=== PATIENT | male | born 1950 | race Caucasian/White ===

== ENCOUNTER 2016-12-08 05:31 | Day surgery (SDC) | payer MEDICARE, OTHER ==
[~2016-12-08] VITALS: Ht 190.5 cm; Wt 141.8 kg
[~2016-12-08 05:31] MED LIST: ASPIRIN325 MG PO; CARDURA2 MG PO; COZAAR100 MG PO; GLUCOSAMINE & C1 CAP; GLUCOSAMINE MSM; HYDROCODON-ACE1 EAC7 PO; ISOSORBIDE MONO30 M1 PO; LASIX40 MG PO; METFORMIN HCL500 M1 PO; MULTIPLE VITAMI1 TA1 PO; NEURONTIN 300300 MG PO; NITROSTAT0.4 MG SL; NORVASC10 MG PO; POTASSIUM CHLO10 ME1 PO; PREDNISONE20 MG PO; VITAMIN B-121000 MCG PO; ZEBETA5 MG PO; ZOCOR20 MG PO
[2016-12-08 06:25] LABS: BASOPHILS 0.3 % (0-2); EOSINOPHILS 2.9 % (0-7); HEMATOCRIT 37.3 % (42.0-54.0); HEMOGLOBIN 12.8 g/dL (13.5-17.5); IMMATURE GRANULOCYTES 0.3 % (0-5); MCH 31.1 pg (26.0-34.0); MCHC 34.3 g/dL (31.0-37.0); MCV 90.8 fL (80.0-100.0); MEAN PLATELET VOLUME 9.8 fL (7.4-10.4); MONOCYTES 7.8 % (2-11); NEUTROPHILS 61.7 % (40-80); PLATELET COUNT 136 10x3/uL (130-400); RBC 4.11 10x6/uL (4.20-6.10); RDW 12.5 % (11.5-14.5); WBC 7.2 10x3/uL (4.8-10.8)
[2016-12-08 06:46] LABS: CALC OSMOLALITY 282 mosm/kg (275-300); CALCIUM 9.2 mg/dL (8.5-10.1); CARBON DIOXIDE 28.4 mmol/L (21.0-32.0); CHLORIDE - SERUM 105 mmol/L (98-107); CREATININE - SERUM 0.8 mg/dL (0.6-1.3); GLUCOSE 152 mg/dL (74-106); POTASSIUM - SERUM 3.9 mmol/L (3.5-5.1); SODIUM 141 mmol/L (136-145); UREA NITROGEN 9 mg/dL (7-18); eGFR NON AFRICAN AMERICAN > 90 mL/min (90-120)
[2016-12-08] MEDS ORDERED: BETAPACE160 MG PO (07:01)
[2016-12-08 07:13] VITALS: BP 151/70; Ht 190.5 cm; Wt 141.8 kg
--- NOTE | 2016-12-08 09:34 | NUR ---
IV DC WITH CATBHER TIP INTACT
--- NOTE | 2016-12-10 17:16 | OP ---
PATIENT NAME: KRISTIE CARRERA MEDICAL RECORD: [id number] :48 LOCATION:D.OPS ADMISSION DATE: SURGEON: NATHANAEL SULLIVAN MD DATE OF OPERATION: 12/08/2016 REFERRING PHYSICIAN: Dr. Vazquez. SURGEON: Nathanael Sullivan MD ANESTHESIA: TIVA per INFORMATION TECHNOLOGY COORDINATOR. OPERATION PERFORMED: Screening colonoscopy to the cecum. INDICATIONS: Prior screening colonoscopy 10 or more years in the past. The patient presently asymptomatic and is classified as a low risk individual. DESCRIPTION OF PROCEDURE: Under propofol sedation and monitored per INFORMATION TECHNOLOGY COORDINATOR, the patient was turned in the decubitus position and digital rectal exam was performed. I could not reach high in the rectum, but I noted that the prostate seemed to be enlarged, the lower half that I could palpate. There were no masses, no evidence of perianal sepsis or tumor, hemorrhoidal thrombosis or inflammation. The Olympus colonoscope was then inserted and advanced to the cecum with mild difficulty due to some spasm and persistent green liquid stool, which had not been completely cleared during his prep. I was able to irrigate and suction most of this away although it did compromise examination slightly. The scope was slowly withdrawn with a pullout time of 15 minutes and no pathology was seen. The scope was retroflexed in the rectum. Again, no pathology there. The scope was removed and the patient after recovering in the GI lab will be returned to his bed on the outpatient nursing, will resume his usual home medications and diabetic diet and then will be discharged later today. He does not need to return to see me in my office unless there is a problem or concern and if there is, he certainly should call and he is given my personal cell phone number to use if necessary after regular office hours. TRANSINT:[id number] Voice Confirmation ID: [id number] DOCUMENT ID: [id number] NATHANAEL SULLIVAN MD at 1716 CC: TANYA VAZQUEZ MD [id number] DICTATION DATE: 12/08/16 0845 RN PRIOR AUTHORIZATION: 12/08/16 1326 [facility] 12/08/16 [place] [id number]
== END 2016-12-08 09:40 | disposition home or self-care (01) ==
LOC: D.OPS 05:31
PROVIDERS: Anesthesiology
DX: Z12.11 Encounter for screening for malignant neoplasm of colon (principal)

== ENCOUNTER → 2017-10-13 10:29 | Outpatient (CLI) | payer MEDICARE, OTHER ==
--- NOTE | ~2017-10-13 | HEMODYNAMI ---
PATIENT:KRISTIE CARRERA MEDICAL RECORD: [id number] : 48 LOCATION:[facility] ADMISSION DATE: 10/13/17 Generatedon:10/13/201713:01 Patient name: KRISTIE CARRERA Patient #: [id number] SSN: : 1950 Date of study: 10/13/2017 Page: Of Hemodynamic Procedure Report Patient Data Patient Demographics Procedure consent was obtained First Name: KRISTIE Gender: Male Last Name: DEANDRE : 1950 [facility] Initial: CULLEN Age: 67 year(s) Patient #: [id number] Race: Additional ID: [id number] Contact details Address: [address] [place] [address] State: [place] City: [place] Zip code: [address] Past Medical History History of disease Date Diagnosis Comments CAD Allergies Allergen Reaction Date Comments Reported Other allergy 01/23/2015 SHELLFISH Other allergy 10/13/2017 SHELLFISH DERIVED Admission Admission Data Admission Date: 10/13/2017 Admission Time: 10:29 Height (in.): 6.3 BSA: 0.45 (m2) Height (cm.): 16 BMI: 5881.06 (kg/m2) Weight (lbs.): 332 Weight (kg.): 150.59 Lab Results Lab Result Date: 10/13/2017 Lab Result Time: 0:00 Biochemistry Name Units Result Min Max BUN mg/dl 16 --(---*)-- 7 18 Creatinine mg/dl 1 --(--*-)-- 0.6 1.3 CBC Name Units Result Min Max Hemoglobin g/dl 13.1 -*(----)-- 13.5 17.5 Procedure Procedure Types Cath Procedure Diagnostic Procedure LHC LHC w/Coronaries w/Grafts Miscellaneous Procedures Moderate Sedation up to 15 minutes Procedure Description Procedure Date Procedure Date: 10/13/2017 Procedure Start Time: 12:39 Procedure End Time: 13:00 Procedure Staff Name Function Humlbe Mac MD Performing Physician Ashely Villavicencio RT Monitor Horacio Ignacio RT Scrub Jeffrey Calle RN Nurse Procedure Data Cath Procedure Fluoroscopy Diagnostic fluoroscopy Total fluoroscopy Time: 3.2 time: 3.2 min min Diagnostic fluoroscopy Total fluoroscopy dose: 785 dose: 785 mGy mGy Contrast Material Contrast Material Type Amount (ml) Isovue 300 80 Entry Location Entry Primary Successful Side Size Upsize Upsize Entry Closure Succes sful Closure Location (Fr) 1 (Fr) 2 (Fr) Remarks Device Remarks Femoral Right 5 Fr Exoseal artery Estimated blood loss: 5 ml Diagnostic catheters Device Type Used For End Catheter Placement MULTIPACK JL 4.0 5Fr Procedure catheter DIAGNOSTIC AR MOD 5Fr Procedure Catheter ([id number]) DIAGNOSTIC IMT 5Fr Procedure Catheter ([id number]) MULTIPACK Pigtail 5 Fr Procedure catheter Procedure Complications No complications Procedure Medications Medication Administration Route Dosage 0.9% NaCl I.V. 100 ml/hr Oxygen NC 2 l/min Heparin Flush Bag added to field 2 bags (1000units/500ml NS) Lidocaine 2% added to field 20 Versed I.V. 2 mg Fentanyl I.V. 100 mcg Versed I.V. 1 mg Hemodynamics Rest BSA: 0.45 (m2) HGB: 13.1 (g/dl) O2 Consumption: Estimated: 53.11 (ml/min) O2 Con sumption indexed: Estimated:118.02 (ml/min/m) Heart Rate: 75 (bpm) Pressure Samples Time Site Value (mmHg) Purpose Heart Use Rate(bpm) 12:52 LV 175/8,23 Snapshot 83 12:52 AO (108) Pullback 80 12:52 LV 167/2,18 Pullback 80 Gradients Valve Time Site 1 Site Mean SEP/DFP Peak To Heart Use 2 (mmHg) (sec/min) Peak Rate (mmHg) (bpm) Aortic 12:52 LV AO 11 21 80 167/2,18 (108) Calculations Valve P-P Mean Valve Index Valve Source Name Gradient Area Flow (cm2) Aortic 11 11 Snapshots Pre Cath Intra NCS Post Cath Vital Signs Time Heart Resp SPO2 etCO2 NIBP (mmHg) Rhythm Pain Sedation Rate (ipm) (%) (mmHg) Status Level (bpm) 12:31:54 70 17 95 33.6 162/79(128) A-Fib 0 (11) 10(A) , No pain 12:36:43 74 14 95 27.6 158/81(106) A-Fib 0 (11) 10(A) , No pain 12:41:33 73 18 96 25.3 150/93(119) A-Fib 0 (11) 10(A) , No pain 12:46:24 75 18 95 31.3 149/81(114) A-Fib 0 (11) 9(A) , No pain 12:51:15 82 18 96 32.1 161/86(108) A-Fib 0 (11) 9(A) , No pain 12:56:08 81 22 96 33.5 161/91(116) A-Fib 0 (11) 10(A) , No pain 13:00:59 83 20 96 32 158/95(128) A-Fib 0 (11) 10(A) , No pain Medications Time Medication Route Dose Verified Delivered Reason Notes Effe ctiveness by by 12:30:22 0.9% NaCl I.V. 100 Jeffrey Jeffrey Per ml/hr Alva Calle physician RN RN 12:30:33 Oxygen NC 2 Jeffrey Jeffrey Per l/min Alva Calle physician RN RN 12:30:46 Heparin Flush added 2 Jeffrey Jeffrey used for Bag to bags Lorigan Lorigan procedure (1000units/500ml field RN RN NS) 12:30:56 Lidocaine 2% added 20ml Jeffrey Jeffrey for local to vial Lorigan Lorigan anesthetic field RN RN 12:32:45 Versed I.V. 2 mg Jeffrey Jeffrey for Lorigan Lorigan sedation RN RN 12:32:53 Fentanyl I.V. 100 Jeffrey Jeffrey for mcg Lorigan Lorigan sedation RN RN 12:38:24 Versed I.V. 1 mg Jeffrey Jeffrey for Lorigan Lorigan sedation RN assistant operator Log Time Note 11:58:41 Time tracking: Regular hours 11:58:45 Plan of Care:Hemodynamics will remain stable., Cardiac rhythm will remain stable., Comfort level will be maintained., Respiratory function will remain adequate., Patient/ family verbilizes understanding of procedure., Procedure tolerated without complication., Recovers from procedure without complications.. 11:58:47 Signed procedure consent form obtained from patient. 12:02:25 Patient Height : 6.3 inches 12:02:31 Patient Weight : 332 lbs 12:03:51 Patient allergic to Other allergySHELLFISH DERIVED 12:05:51 Lab Result : BUN 16 mg/dl 12:05:51 Lab Result : Creatinine 1 mg/dl 12:05:51 Lab Result : Hemoglobin 13.1 g/dl 12:08:38 Jeffrey Calle RN sent for patient. Start room use. 12:17:40 Patient received from Pre/Post Procedure Room to CCL 1 Alert and oriented. Tansferred to table in Supine position. 12:17:45 Warm blankets applied, and marcus hugger turned on for patient comfort. 12:17:46 Correct patient and procedure confirmed by team. 12:17:46 ECG and BP/O2 sat monitors applied to patient. 12:17:57 H&P Date Dictated: 10/11/2017 Within 30 days and on chart., H&P Addendum completed by physician on day of procedure. (MUST COMPLETE FOR ALL OUTPATIENTS). 12:17:58 Pre-procedure instructions explained to patient. 12:17:58 Pre-op teaching completed and patient verbalized understanding. 12:18:00 Family in waiting room. 12:18:01 Patient NPO since Midnight. 12:18:07 Diagnostic Cath status Elective 12:30:22 0.9% NaCl 100 ml/hr I.V. was administered by Jeffrey Calle RN; Per physician; 12:30:33 Oxygen 2 l/min NC was administered by Jeffrey Calle RN; Per physician; 12:30:46 Heparin Flush Bag (1000units/500ml NS) 2 bags added to field was administered by Jeffrey Calle RN; used for procedure; 12:30:47 Vital chart was started 12:30:56 Baseline sample Acquired. 12:30:56 Lidocaine 2% 20ml vial added to field was administered by Jeffrey Calle RN; for local anesthetic; 12:31:01 Rhythm: sinus rhythm 12:31:02 Full Disclosure recording started 12:31:06 Is the patient allergic to Iodine/contrast media? Yes. 12:31:07 Was the patient premedicated? Yes 12:31:08 Is patient on blood thinner?Yes 12:31:22 CAROLINE HELD WEDNESDAY 12:31:35 Patient diabetic? Yes. 12:31:36 If diabetic: On Metformin? Yes 12:31:39 If on Metformin: Last Dose? 10/11/2017 12:31:42 Previous problem with sedation/anesthesia? No ? 12:31:43 Snore? Yes 12:31:43 Sleep apnea? Yes 12:31:45 Deviated septum? No 12:31:46 Opens mouth fully? Yes 12:31:46 Sticks out tongue? Yes 12:31:49 Airway obstruction? No ? 12:31:51 Dentures? No ? 12:31:54 Pre procedure: right dorsailis pedis pulse 2+ Normal; easily identifiable; not easily obliterated 12:32:01 IV patent on arrival in left hand with 0.9% NaCl at [facility]. 12:32:03 Patient pain scale 0/10 ?. 12:32:06 Lab results completed and on chart. 12:32:09 Right groin area was prepped with chlora-prep and draped in sterile fashion 12:32:11 Alarms reviewed by R. N. 12:32:11 Sharps counted by scrub and verified by R.N. 12:32:12 --------ALL STOP TIME OUT------ 12:32:13 Final Timeout: patient, procedure, and site verified with staff and physician. All members of the team are in agreement. 12:32:14 Right groin site verified by team. 12:32:17 Physical assessment completed. ASA score P 2 - A patient with mild systemic disease as per Humble Mac MD. 12:32:21 Sedation plan: IV Moderate Sedation Medication:Versed, Fentanyl 12:32:34 Use device set Femoral Dx 12:32:36 ACIST Syringe (19238) opened to sterile field. 12:32:36 Bag Decanter (2001S) opened to sterile field. 12:32:38 ACIST Hand Control (88072) opened to sterile field. 12:32:38 ACIST Manifold (71790) opened to sterile field. 12:32:39 Tegaderm 4 x 4 (1626W) opened to sterile field. 12:32:40 Medline Cath Pack ([id number]) opened to sterile field. 12:32:41 SHEATH 5FR [place] (OZY777) opened to sterile field. 12:32:41 DIAGNOSTIC WIRE .035 260cm J wire (830996) opened to sterile field. 12:32:43 DIAGNOSTIC Multipack 5Fr catheter set ([id number]) opened to sterile field. 12:32:43 PERCUTANEOUS ENTRY 19GA needle opened to sterile field. 12:32:45 Versed 2 mg I.V. was administered by Jeffrey Calle RN; for sedation; 12:32:53 Fentanyl 100 mcg I.V. was administered by Jeffrey Calle RN; for sedation; 12:36:12 Zero performed for pressure channel P1 12:36:24 Zero performed for pressure channel P1 12:36:46 Zero performed for pressure channel P1 12:36:57 Zero performed for pressure channel P1 12:37:07 Zero performed for pressure channel P1 12:38:24 Versed 1 mg I.V. was administered by Jeffrey Calle RN; for sedation; 12:39:07 Zero performed for pressure channel P1 12:39:34 Zero performed for pressure channel P1 12:39:38 Procedure started. 12:39:42 Local anesthetic to right femoral artery with Lidocaine 2% by Humble Mac MD.INITIAL ACCESS ONLY 12:39:52 Zero performed for pressure channel P1 12:41:32 A 5 Fr sheath was inserted into the Right Femoral artery 12:42:18 A MULTIPACK JL 4.0 5Fr catheter was advanced over the wire and used for Procedure. 12:43:31 LCA angiography performed. 12:44:00 Catheter exchanged over wire. 12:45:07 A DIAGNOSTIC AR MOD 5Fr Catheter ([id number]) was advanced over the wire and used for Procedure. 12:45:58 SVG to RCA angiography performed. 12:46:43 Catheter exchanged over wire. 12:47:27 A DIAGNOSTIC IMT 5Fr Catheter ([id number]) was advanced over the wire and used for Procedure. 12:49:31 WILCOX to LAD angiography performed. 12:49:43 WILCOX to Circ angiography performed. 12:50:04 Catheter exchanged over wire. 12:51:17 A MULTIPACK Pigtail 5 Fr catheter was advanced over the wire and used for Procedure. 12:51:48 LV gram done using CROWLEY 12::52 Injector settings: Ml/sec: 10, Volume: 20, 12:51:53 LV hemodynamics recorded. 12:52:38 EF : 60 % 12:53:05 Catheter exchanged over wire. 12:53:06 Catheter removed. 12:53:19 EXOSEAL 5Fr (EX500) opened to sterile field. 12:53:28 Sheath removed intact; hemostasis achieved with Exoseal to the Right Femoral artery. 12:54:12 Procedure ended.(Physican Out) 12:54:48 Fluoroscopy time 03.20 minutes. 12:54:51 Fluoroscopy dose: 785 mGy 12:54:51 Flurop Dose total: 785 12:54:56 Contrast amount:Isovue 300 80ml. 12:54:57 Sharps counted by scrub and verified by R.N. 12:55:25 Post-op/insertion site Right Femoral artery dressed using a 4 x 4 and Tegaderm. 12:55:30 Post right femoral artery:stable, soft, clean and dry 12:55:35 Post procedure: right dorsailis pedis pulse 2+ Normal; easily identifiable; not easily obliterated. 12:55:38 Post-procedure physical assessment completed. ASA score P 2 - A patient with mild systemic disease as per Humble Mac MD. 12:55:41 Post procedure rhythm: unchanged. 12:55:43 Estimated blood loss: 5 ml 12:55:44 Post procedure instruction explained to patient.Patient verbalizes understanding. 12:55:45 Patient needs reinforcement of post procedure teaching. 12:55:51 Procedure type changed to Cath procedure, Diagnostic procedure, LHC, LHC w/Coronaries w/Grafts, Miscellaneous Procedures, Moderate Sedation up to 15 minutes 13:00:20 Procedure and supply charges have been captured, reviewed, submitted and are correct. 13:00:28 Procedure Complication : No complications 13:00:30 Vital chart was stopped 13:00:31 See physician's report for complete and final results. 13:00:33 Report given to Pre/Post Procedure Room. 13:00:35 Patient transfered to Pre/Post Procedure Room with Bed. 13:00:38 Procedure ended. 13:00:38 Full Disclosure recording stopped 13:00:54 End room use (Document Last) Device Usage Item Name Manufacture Quantity Catalog Number Hospital Part Current Mini mal Lot# / Charge Number Stock Stock Serial# Code ACIST Acist 1 00177 729495 107490 803619 20 Syringe Medical (48788) [employer] Bag Decanter Microtek 1 995255 27718 797709 5 () Medical Inc. ACIST Hand Acist 1 12115 148675 577516 633571 5 Control Medical (76882) Systems Inc ACIST Acist 1 40817 146439 842638 144337 5 Manifold Medical (91425) Systems Inc Tegaderm 4 x 3M 1 1626W 202830 910380 213290 5 4 (1626W) Medline Cath Cardinal 1 [id number] 466192 27645 122715 5 Pack Health ([id number]) SHEATH 5FR Terumo 1 KJV296 458940 705888 694098 40 [place] (HZQ089) DIAGNOSTIC [place] 1 762947 204547 184822 878144 30 WIRE .035 260cm J wire (851222) DIAGNOSTIC Cardinal 1 JM2971 982747 55795 862797 30 Multipack Health 5Fr catheter set (IO4320) PERCUTANEOUS Cook Medical 1 H45997 819472 089999 5 ENTRY 19GA needle MULTIPACK JL Cardinal 1 648613 5 4.0 5Fr Health catheter DIAGNOSTIC Cardinal 1 [id number] 332968 893998 562071 15 AR MOD 5Fr Health Catheter (476001O) DIAGNOSTIC [place] 1 [id number] 845277 138601 61362 5 IMT 5Fr Scientific Catheter ([id number]) MULTIPACK Cardinal 1 406590 5 Pigtail 5 Fr Health catheter EXOSEAL 5Fr Cardinal 1 EX500 903785 912055 745417 10 (EX500) Health Signature Audit [place] Stage Time Signature Unsigned Intra-Procedure 10/13/2017 Ashely Villavicencio 1:01:12 PM RT(R) Signatures Monitor : Ashely Villavicencio Signature : RT Date : Time : [facility] [address] [facility] [place] [address]
[~2017-10-13 10:29] MED LIST changes: +BETAPACE160 MG PO; +ELIQUIS5 MG PO; +RYTHMOL PO
[2017-10-13 11:22] VITALS: BP 171/66; BMI 41.9
[2017-10-13 11:25] LABS: HEMATOCRIT 37.9 % (42.0-54.0); HEMOGLOBIN 13.1 g/dL (13.5-17.5); MCH 30.3 pg (26.0-34.0); MCHC 34.6 g/dL (31.0-37.0); MCV 87.5 fL (80.0-100.0); MEAN PLATELET VOLUME 8.8 fL (7.4-10.4); PLATELET COUNT 149 10x3/uL (130-400); RBC 4.33 10x6/uL (4.20-6.10); RDW 12.2 % (11.5-14.5); WBC 8.8 10x3/uL (4.8-10.8)
[2017-10-13 11:39] LABS: CALC OSMOLALITY 285 mosm/kg (275-300); CALCIUM 9.5 mg/dL (8.5-10.1); CARBON DIOXIDE 21.6 mmol/L (21.0-32.0); CHLORIDE - SERUM 102 mmol/L (98-107); POTASSIUM - SERUM 4.2 mmol/L (3.5-5.1); SODIUM 138 mmol/L (136-145); UREA NITROGEN 16 mg/dL (7-18); eGFR NON AFRICAN AMERICAN 79 mL/min (90-120)
[2017-10-13 11:40] LABS: GLUCOSE 262 mg/dL (74-106)
[2017-10-13 12:06] LABS: INR 1.01 (0.85-1.17); PROTIME 12.9 SECONDS (11.6-15.0)
== END | disposition home or self-care (01) ==
LOC: D.CATH 10:29
PROVIDERS: Internal Medicine Cardiovascular Disease
DX: I25.119 Atherosclerotic heart disease of native coronary artery with unspecified angina pectoris (principal); Z95.1 Presence of aortocoronary bypass graft; Z01.812 Encounter for preprocedural laboratory examination

== ENCOUNTER 2017-10-16 09:10 | Observation (INO) | payer MEDICARE, OTHER ==
[~2017-10-16] VITALS: Ht 190.5 cm; Wt 152.3 kg
--- NOTE | ~2017-10-16 | CN ---
PATIENT NAME:KRISTIE CARRERA MEDICAL RECORD: [id number] : 48 LOCATION:D.MS [address] ADMIT DATE: 10/16/17 ACCOUNT: [id number] CONSULTING PHYSICIAN: MARTHA HUTCHISON MD REFERRING PHYSICIAN: MATTHEW GONZALEZ MD DATE OF CONSULTATION: 10/17/2017 HISTORY OF PRESENT ILLNESS: A 67-year-old gentleman admitted with chest pain, palpitations, and shortness of breath. He recently underwent angiography, which showed normal coronary anatomy, normal LV function. His arrhythmogenic symptomatology sounds more like PVCs and PACs. He has had atrial fibrillation in the past. He is on Eliquis for seizure prophylaxis, feels that his dyspnea may be secondary related to his sotalol as well, although I see a large component of deconditioning in this gentleman. We are asked to see him concerning his cardiovascular status. PAST MEDICAL HISTORY: Includes; 1. History of atrial fibrillation as described above. 2. Hyperlipidemia. 3. Hypertension. 4. Diabetes mellitus. 5. Obstructive sleep apnea. ALLERGIES: SHELLFISH. MEDICATIONS: Typically include Glucophage 500 b.i.d., potassium supplementation, Lasix 40 b.i.d., Traphill 5/325 two at bedtime, Neurontin 800 t.i.d., aspirin 325 every day, losartan 100 every day, amlodipine 10 every day, sotalol 120 b.i.d., simvastatin 20 every day, Cardura 3 every day, Eliquis 5 b.i.d. SOCIAL HISTORY: , nonsmoker, and nondrinker. No set exercise program. REVIEW OF SYSTEMS: The patient reports easy bruising but reports no swollen glands. The patient reports no fever, no night sweats, no significant weight gain, no significant weight loss. No significant exercise tolerance. The patient reports no dry eyes, no irritation, no vision change. Patient reports no difficulty hearing and no ear pain. Patient reports no frequent nose bleeds or nose and sinus problems. Patient reports on arm pain on exertion. No shortness of breath while lying down. No history of heart murmur. Patient reports no cough, no wheezing or coughing up blood. Patient reports no abdominal pain, no vomiting. Normal appetite. No diarrhea and not vomiting blood. No nausea and no constipation. Patient reports no incontinence. No difficulty urinating. No hematuria. No increased frequency. Patient reports no muscle aches. No weakness, no arthralgias, no back pain. No swelling of the extremities. Patient reports no abnormal mole, no jaundice, no rashes. Reports no loss of consciousness. No weakness and no numbness. No seizures, dizziness, or headaches. The patient reports no depression, no sleep disturbance, feeling safe in a relationship and no alcohol abuse. Patient reports on fatigue. Reports no runny nose or sinus pressure. No itching, no hives, and no frequent sneezing. PHYSICAL EXAMINATION: GENERAL: Pleasant gentleman, in no acute distress. VITAL SIGNS: Blood pressure 188/85, pulse 60 and regular. CONSULT REPORT [id number] KRISTIE CARRERA HEENT: Normocephalic, atraumatic. NECK: No bruits are noted. HEART: Regular, II/ systolic ejection murmur. LUNGS: Good air excursion. ABDOMEN: Soft, nontender. EXTREMITIES: Pulses 2+. There is no edema. IMPRESSION: Dyspnea and chest pain, probably not cardiac related. No sustained arrhythmogenic symptomatology. Given CHADS score, we would leave on Eliquis at this point. Change sotalol to propafenone 225 t.i.d. No contraindication at discharge from my standpoint. TRANSINT:[id number] Voice Confirmation ID: [id number] DOCUMENT ID: [id number] MARTHA HUTCHISON MD at 0824 CC: [id number] DICTATION DATE: 10/17/17 1208 FRAN[place]ISE CONSULTANT: 10/17/17 1608 DIS IN 10/17/17 [place] [id number] [place] [id number]
[~2017-10-16 09:10] MED LIST changes: -ELIQUIS5 MG PO; -RYTHMOL PO
[2017-10-16 10:07] LABS: BASOPHILS 0.3 % (0-2); EOSINOPHILS 2.4 % (0-7); HEMATOCRIT 36.6 % (42.0-54.0); HEMOGLOBIN 12.6 g/dL (13.5-17.5); IMMATURE GRANULOCYTES 0.7 % (0-5); LYMPHOCYTES 27.6 % (15-50); MCHC 34.4 g/dL (31.0-37.0); MCV 89.9 fL (80.0-100.0); MEAN PLATELET VOLUME 9.4 fL (7.4-10.4); PLATELET COUNT 140 10x3/uL (130-400); RBC 4.07 10x6/uL (4.20-6.10); RDW 12.4 % (11.5-14.5); WBC 7.1 10x3/uL (4.8-10.8)
[2017-10-16 10:17] LABS: APTT 28.7 SECONDS (22.8-39.4); INR 1.1 (0.85-1.17); PROTIME 13.8 SECONDS (11.6-15.0)
[2017-10-16 10:18] LABS: D-DIMER-QUANTITATIVE 0.43 ug/mLFEU (0.20-0.54)
[2017-10-16 10:21] LABS: ALBUMIN 3.7 g/dL (3.4-5.0); ALKALINE PHOSPHATASE 51 U/L (46-116); ALT (SGPT) 28 U/L (10-68); BILIRUBIN - TOTAL 0.31 mg/dL (0.2-1.3); CALC OSMOLALITY 286 mosm/kg (275-300); CALCIUM 9.1 mg/dL (8.5-10.1); CARBON DIOXIDE 26.4 mmol/L (21.0-32.0); CHLORIDE - SERUM 102 mmol/L (98-107); CREATININE - SERUM 1.1 mg/dL (0.6-1.3); POTASSIUM - SERUM 3.6 mmol/L (3.5-5.1); PROTEIN - SERUM 7.2 g/dL (6.4-8.2); SODIUM 139 mmol/L (136-145); UREA NITROGEN 23 mg/dL (7-18); eGFR NON AFRICAN AMERICAN 71 mL/min (90-120)
[2017-10-16 10:24] LABS: GLUCOSE 186 mg/dL (74-106)
[2017-10-16 10:33] LABS: CHOL - HDL RATIO 3.4 ratio (2.3-4.9); CHOLESTEROL, TOTAL 134 mg/dL (0-200); CKMB 1.4 U/L (0.0-3.6); CREATINE KINASE 68 UL (21-232); HDL CHOLESTEROL 39 mg/dL (32-96); LDL CHOLESTEROL 60 mg/dL (0-100); LDL-HDL RATIO 1.5 ratio (1.5-3.5); MAGNESIUM - SERUM 1.7 mg/dL (1.8-2.4); PRO BNP 310 pg/mL (0-125); TRIGLYCERIDE 177 mg/dL (30-200)
[2017-10-16 10:35] LABS: TROPONIN-I < 0.017 ng/mL (0.000-0.060)
[2017-10-16 12:30] LABS: CREATINE KINASE 67 UL (21-232)
[2017-10-16 12:35] LABS: TROPONIN-I < 0.017 ng/mL (0.000-0.060)
[2017-10-16 15:11] VITALS: BP 147/68
[2017-10-16 15:59] VITALS: BP 154/67; BMI 41.9
[2017-10-16 16:04] VITALS: Ht 190.5 cm; Wt 152.3 kg
[2017-10-16 18:19] LABS: ERYTHROCYTE SEDIMENTATION RATE 15 mm/hr (0-20)
[2017-10-16 18:55] LABS: CREATINE KINASE 61 UL (21-232); TROPONIN-I < 0.017 ng/mL (0.000-0.060)
[2017-10-16 20:00] VITALS: BP 158/73
[2017-10-17] VITALS: BP 150/66
[2017-10-17 00:53] LABS: CREATINE KINASE 45 UL (21-232); TROPONIN-I < 0.017 ng/mL (0.000-0.060)
[2017-10-17 04:00] VITALS: BP 165/69
[2017-10-17 04:00] LABS: BASOPHILS 0.4 % (0-2); EOSINOPHILS 2.1 % (0-7); HEMATOCRIT 34.8 % (42.0-54.0); HEMOGLOBIN 11.7 g/dL (13.5-17.5); IMMATURE GRANULOCYTES 0.4 % (0-5); LYMPHOCYTES 34.3 % (15-50); MCH 30.3 pg (26.0-34.0); MCHC 33.6 g/dL (31.0-37.0); MCV 90.2 fL (80.0-100.0); MEAN PLATELET VOLUME 9.6 fL (7.4-10.4); MONOCYTES 8.1 % (2-11); NEUTROPHILS 54.7 % (40-80); PLATELET COUNT 135 10x3/uL (130-400); RBC 3.86 10x6/uL (4.20-6.10); RDW 12.4 % (11.5-14.5); WBC 7.5 10x3/uL (4.8-10.8)
[2017-10-17 04:15] LABS: ALBUMIN 3.2 g/dL (3.4-5.0); ALKALINE PHOSPHATASE 44 U/L (46-116); ALT (SGPT) 25 U/L (10-68); BILIRUBIN - TOTAL 0.31 mg/dL (0.2-1.3); CALC OSMOLALITY 282 mosm/kg (275-300); CALCIUM 8.5 mg/dL (8.5-10.1); CARBON DIOXIDE 26.2 mmol/L (21.0-32.0); CHLORIDE - SERUM 103 mmol/L (98-107); GLUCOSE 157 mg/dL (74-106); POTASSIUM - SERUM 3.6 mmol/L (3.5-5.1); PROTEIN - SERUM 6.3 g/dL (6.4-8.2); SODIUM 139 mmol/L (136-145); UREA NITROGEN 19 mg/dL (7-18)
[2017-10-17 04:16] LABS: CREATININE - SERUM 0.8 mg/dL (0.6-1.3)
[2017-10-17 04:18] LABS: eGFR NON AFRICAN AMERICAN > 90 mL/min (90-120)
[2017-10-17 08:08] VITALS: BP 188/85
[2017-10-17 12:10] VITALS: BP 158/75
[2017-10-17] MEDS ORDERED: RYTHMOL PO (12:18)
[2017-10-17 16:39] VITALS: BP 149/65
== END 2017-10-17 16:00 | disposition home or self-care (01) ==
LOC: D.ER 09:10 → D.EDHOLD 11:51 → OBSVTIME 11:52 → D.MS 13:15
PROVIDERS: Family Medicine; Internal Medicine Nephrology
DX: R07.89 Other chest pain (principal); N17.9 Acute kidney failure, unspecified; E83.42 Hypomagnesemia; I10 Essential (primary) hypertension; E78.5 Hyperlipidemia, unspecified; I48.91 Unspecified atrial fibrillation; I25.10 Atherosclerotic heart disease of native coronary artery without angina pectoris; Z95.5 Presence of coronary angioplasty implant and graft; E11.42 Type 2 diabetes mellitus with diabetic polyneuropathy; R79.89 Other specified abnormal findings of blood chemistry

== ENCOUNTER 2017-11-17 10:53 | Outpatient (CLI) | payer MEDICARE, OTHER ==
[~2017-11-17] VITALS: Ht 185.4 cm; Wt 152.3 kg
--- NOTE | ~2017-11-17 | HEMODYNAMI ---
PATIENT:KRISTIE CARRERA MEDICAL RECORD: [id number] : 48 LOCATION:D.CAT ADMISSION DATE: 11/17/17 Generatedon:11/17/201713:33 Patient name: KRISTIE CARRERA Patient #: [id number] SSN: : 1950 Date of study: 11/17/2017 Page: Of Hemodynamic Procedure Report Patient Data Patient Demographics Procedure consent was obtained First Name: KRISTIE Gender: Male Last Name: DEANDRE : 1950 [facility] Initial: CULLEN Age: 67 year(s) Patient #: [id number] Race: Additional ID: [id number] Contact details Address: [address] [place] [address] State: [place] City: [place] Zip code: [address] Past Medical History History of disease Date Diagnosis Comments CAD Allergies Allergen Reaction Date Comments Reported Other allergy 01/23/2015 SHELLFISH Other allergy 10/13/2017 SHELLFISH DERIVED Shellfish 11/17/2017 Admission Admission Data Admission Date: 11/17/2017 Admission Time: 10:53 Procedure Procedure Types Cath Procedure Diagnostic Procedure Cardioversion External Procedure Description Procedure Date Procedure Date: 11/17/2017 Procedure Start Time: 13:20 Procedure End Time: 13:33 Procedure Staff Name Function Humble Mac MD Performing Physician Yuliya Elliott RT Monitor Bart Caro RN Nurse Kristine Bejarano CRNA Additional personnel Jeffrey Calle RN Nurse Procedure Data Procedure Complications No complications Procedure Medications Medication Administration Route Dosage Oxygen etCO2 Nasal cannula 6 l/min Refer to Anesthesia Notes for Sedation Medications Hemodynamics Rest Heart Rate: 69 (bpm) Snapshots Pre Cath Intra NCS Post Cath Vital Signs Time Heart Resp SPO2 etCO2 NIBP (mmHg) Rhythm Pain Sedation Rate (ipm) (%) (mmHg) Status Level (bpm) 12:49:49 71 20 96 0 163/84(130) A-Fib 0 (11) 10(A) , No pain 12:54:30 67 18 99 39.4 169/83(128) A-Fib 0 (11) 10(A) , No pain 12:59:13 78 18 99 38.6 156/89(142) A-Fib 0 (11) 10(A) , No pain 13:03:51 72 17 99 40.8 149/81(124) A-Fib 0 (11) 10(A) , No pain 13:08:22 73 18 99 30.2 167/91(138) A-Fib 0 (11) 10(A) , No pain 13:13:04 63 25 99 37.8 173/80(131) A-Fib 0 (11) 10(A) , No pain 13:17:47 67 18 100 38.6 162/78(125) NSR 0 (11) 8(A) , No pain 13:23:07 69 22 96 25.7 140/70(106) NSR 0 (11) 8(A) , No pain 13:27:31 74 21 97 31 114/99(111) NSR 0 (11) 8(A) , No pain 13:31:30 76 19 98 30.2 133/71(98) NSR 0 (11) 8(A) , No pain Medications Time Medication Route Dose Verified Delivered Reason Notes Effective ness by by 12:51:51 Oxygen etCO2 6 Humble Leon Nasal l/min Bubba Caro RN physician cannula 12:52:23 Refer to Humble Arriaga Per Anesthesia Bubba Caro RN physician Notes for Sedation Medications Procedure Log Time Note 12:34:26 Time tracking: Regular hours 12:34:30 Plan of Care:Hemodynamics will remain stable., Cardiac rhythm will remain stable., Comfort level will be maintained., Respiratory function will remain adequate., Patient/ family verbilizes understanding of procedure., Procedure tolerated without complication., Recovers from procedure without complications.. 12:36:26 Yuliya Counts RT(R) sent for patient. Start room use. 12:43:38 Patient arrived from Pre/Post Procedure Room to CCL 3. Patient remains on bed/stretcher for procedure. 12:43:40 Warm blankets applied, and macrus hugger turned on for patient comfort. 12:43:40 Correct patient and procedure confirmed by team. 12:43:41 Signed procedure consent form obtained from patient. 12:43:42 ECG and BP/O2 sat monitors applied to patient. 12:48:20 Vital chart was started 12:48:25 Rhythm: atrial fibrillation 12:48:30 Full Disclosure recording started 12:48:44 H&P Date Dictated: 11/10/2017 Within 30 days and on chart., H&P Addendum completed by physician on day of procedure. (MUST COMPLETE FOR ALL OUTPATIENTS). 12:48:53 Baseline sample Acquired. 12:48:54 Pre-procedure instructions explained to patient. 12:48:54 Pre-op teaching completed and patient verbalized understanding. 12:48:56 Family in patients room. 12:48:58 Patient NPO since Midnight. 12:49:41 Patient allergic to Shellfish 12:49:52 Was the patient premedicated? N/A 12:49:55 Is patient on blood thinner?Yes 12:49:58 ACC The patient was administered the following blood thiners within the last 24 hours: Eliquis 12:50:01 Patient diabetic? No. 12:50:04 Previous problem with sedation/anesthesia? No ? 12:50:05 Snore? Yes 12:50:05 Sleep apnea? Yes 12:50:06 Deviated septum? No 12:50:07 Opens mouth fully? Yes 12:50:08 Sticks out tongue? Yes 12:50:09 Airway obstruction? No ? 12:50:12 Dentures? No ? 12:50:33 Patient pain scale 0/10 ?. 12:50:49 IV patent on arrival in left forearm with 0.9% NaCl at O. 12:50:50 Lab results completed and on chart. 12:50:56 Alarms reviewed by Queta Llanos. 12:51:02 Quick combo pads placed on patients chest and back. 12:51:51 Oxygen 6 l/min etCO2 Nasal cannula was administered by Bart Caro RN; Per physician; 12:52:23 Refer to Anesthesia Notes for Sedation Medications was administered by Bart Caro RN; Per physician; 12:58:10 Waiting on anesthesia 13:02:51 DR Mac scrubbed into another procedure. Waiting on anesthesia. 13:04:57 Kristine Bejarano CRNA present and monitoring patient for TIVA. 13:17:53 Final Timeout: patient, procedure, and site verified with staff and physician. All members of the team are in agreement. 13:17:55 Physical assessment completed. ASA score P 2 - A patient with mild systemic disease as per Humble Mac MD. 13:17:59 Sedation plan: TIVA Medication:Propofol 13:20:39 Procedure started. 13:21:50 Defibrillator synced and charged to 200 Joules. 13:21:53 Shock delivered. 13:22:53 Patient cardioverted to sinus rhythm . 13:23:29 Procedure ended.(Physican Out) 13:23:46 Post procedure rhythm: sinus rhythm 13:23:48 Post procedure instruction explained to patient.Patient verbalizes understanding. 13:23:52 See physician's report for complete and final results. 13:24:11 Quick Combo opened to sterile field. 13:24:38 Procedure and supply charges have been captured, reviewed, submitted and are correct. 13:25:14 Procedure Complication : No complications 13:32:32 Vital chart was stopped 13:33:06 Report given to Pre/Post Procedure Room. 13:33:15 Patient transfered to Pre/Post Procedure Room with Stretcher. 13:33:17 Procedure ended. 13:33:17 Full Disclosure recording stopped 13:33:20 End room use (Document Last) Device Usage Item Manufacture Quantity Catalog Hospital Part Current Minimal Lot# / Name Number Charge Number Stock Stock Edward al# Code YaBattle [id number] 5 Combo Signature Audit [place] Stage Time Signature Unsigned Intra-Procedure 11/17/2017 Yuliya 1:33:33 PM Counts RT(R) Signatures Monitor : Yuliya Signature : Counts RT Date : Time : [address] [address]
[~2017-11-17 10:53] MED LIST changes: +RYTHMOL PO
[2017-11-17 11:32] VITALS: BP 149/72; Ht 185.4 cm; Wt 152.3 kg
[2017-11-17 11:41] LABS: BASOPHILS 0.3 % (0-2); HEMATOCRIT 37.5 % (42.0-54.0); HEMOGLOBIN 12.9 g/dL (13.5-17.5); IMMATURE GRANULOCYTES 0.3 % (0-5); INR 1.12 (0.85-1.17); LYMPHOCYTES 25.3 % (15-50); MCH 30.8 pg (26.0-34.0); MCHC 34.4 g/dL (31.0-37.0); MCV 89.5 fL (80.0-100.0); MEAN PLATELET VOLUME 9.4 fL (7.4-10.4); MONOCYTES 7.3 % (2-11); NEUTROPHILS 63.8 % (40-80); PLATELET COUNT 134 10x3/uL (130-400); RBC 4.19 10x6/uL (4.20-6.10); RDW 12.6 % (11.5-14.5); WBC 5.7 10x3/uL (4.8-10.8)
[2017-11-17 11:43] LABS: CALC OSMOLALITY 285 mosm/kg (275-300); CALCIUM 8.7 mg/dL (8.5-10.1); CARBON DIOXIDE 26.2 mmol/L (21.0-32.0); CHLORIDE - SERUM 104 mmol/L (98-107); CREATININE - SERUM 0.9 mg/dL (0.6-1.3); GLUCOSE 179 mg/dL (74-106); POTASSIUM - SERUM 4.2 mmol/L (3.5-5.1); SODIUM 141 mmol/L (136-145); UREA NITROGEN 16 mg/dL (7-18); eGFR NON AFRICAN AMERICAN 89 mL/min (90-120)
[2017-11-17] MEDS ORDERED: ELIQUIS5 MG PO (12:42)
== END 2017-11-17 14:53 | disposition home or self-care (01) ==
LOC: D.CATH 10:53
PROVIDERS: Internal Medicine Cardiovascular Disease
DX: I48.91 Unspecified atrial fibrillation (principal); Z01.812 Encounter for preprocedural laboratory examination

== ENCOUNTER 2018-04-25 10:22 | Observation (INO) | payer MEDICARE, OTHER ==
[~2018-04-25] VITALS: Ht 185.4 cm; Wt 152.6 kg
--- NOTE | ~2018-04-25 | HEMODYNAMI ---
PATIENT:KRISTIE CARRERA MEDICAL RECORD: [id number] : 48 LOCATION:[facility] D.2117 ADMISSION DATE: 04/25/18 Generatedon:04/26/201815:53 Patient name: KRISTIE CARRERA Patient #: [id number] SSN: : 1950 Date of study: 04/26/2018 Page: Of Hemodynamic Procedure Report Patient Data Patient Demographics Procedure consent was obtained First Name: KRISTIE Gender: Male Last Name: DEANDRE : 1950 [facility] Initial: CULLEN Age: 67 year(s) Patient #: [id number] Race: Additional ID: [id number] Contact details Address: [address] [place] [address] State: [place] City: [place] Zip code: [address] Past Medical History History of disease Date Diagnosis Comments CAD Allergies Allergen Reaction Date Comments Reported Other allergy 01/23/2015 SHELLFISH Other allergy 10/13/2017 SHELLFISH DERIVED Shellfish 11/17/2017 Shellfish 04/26/2018 Admission Admission Data Admission Date: 04/25/2018 Admission Time: 16:22 Room #: D.2117 Procedure Procedure Types Cath Procedure Diagnostic Procedure LHC LHC w/Coronaries w/Grafts Sedation Charges Moderate Sedation up to 15 minutes Procedure Description Procedure Date Procedure Date: 04/26/2018 Procedure Start Time: 15:34 Procedure End Time: 15:52 Procedure Staff Name Function Humble Mac MD Performing Physician Yuliya Elliott RT Monitor Tian Jane RN Nurse Ahmet Mistry RT Scrub Procedure Data Cath Procedure Fluoroscopy Diagnostic fluoroscopy Total fluoroscopy Time: 3.1 time: 3.1 min min Diagnostic fluoroscopy Total fluoroscopy dose: 785 dose: 785 mGy mGy Contrast Material Contrast Material Type Amount (ml) Isovue 300 86 Entry Location Entry Primary Successful Side Size Upsize Upsize Entry Closure Succes sful Closure Location (Fr) 1 (Fr) 2 (Fr) Remarks Device Remarks Femoral Right 5 Fr Exoseal artery Estimated blood loss: 5 ml Diagnostic catheters Device Type Used For End Catheter Placement MULTIPACK JL 4.0 5Fr Left Coronary catheter Angiography DIAGNOSTIC AR MOD 5Fr Right Coronary Catheter ([id number]) Angiography DIAGNOSTIC AR MOD 5Fr SVG Angiography Catheter ([id number]) DIAGNOSTIC IM 5Fr Internal mammary catheter ([id number]) arteriography MULTIPACK Pigtail 5 Fr LV Angiography catheter Procedure Complications No complications Procedure Medications Medication Administration Route Dosage Oxygen etCO2 Nasal cannula 2 l/min Lidocaine 2% added to field 20 Heparin Flush Bag added to field 2 bags (1000units/500ml NS) 0.9% NaCl I.V. 100 ml/hr Versed I.V. 2 mg Fentanyl I.V. 100 mcg Versed I.V. 1 mg Fentanyl I.V. 50 mcg Zofran I.V. 4 mg Versed I.V. 1 mg Fentanyl I.V. 50 mcg Hemodynamics Rest Heart Rate: 78 (bpm) Pressure Samples Time Site Value (mmHg) Purpose Heart Use Rate(bpm) 15:48 LV 142/7,22 EDP 71 15:49 AO 141/65(98) Pullback 75 15:49 LV 156/4,41 Pullback 75 Gradients Valve Time Site 1 Site 2 Mean SEP/DFP Peak To Heart Use (mmHg) (sec/min) Peak Rate (mmHg) (bpm) Aortic 15:49 LV AO 19 11 15 75 156/4,41 141/65(98) Calculations Valve P-P Mean Valve Index Valve Source Name Gradient Area Flow (cm2) Aortic 15 19 15 19 Snapshots Pre Cath Intra NCS Post Cath Vital Signs Time Heart Resp SPO2 etCO2 NIBP (mmHg) Rhythm Pain Sedation Rate (ipm) (%) (mmHg) Status Level (bpm) 15:10:37 66 21 96 27.8 167/92(121) A-Fib 0 (11) 10(A) , No pain 15:15:42 81 21 94 28.5 168/90(119) A-Fib 0 (11) 10(A) , No pain 15:20:45 71 21 94 15 151/88(118) A-Fib 0 (11) 10(A) , No pain 15:25:49 84 19 94 14.2 145/71(116) NSR 0 (11) 10(A) , No pain 15:30:50 84 18 94 12.7 140/73(106) NSR 0 (11) 9(A) , No pain 15:35:51 76 18 95 15.7 130/73(97) NSR 0 (11) 9(A) , No pain 15:40:46 71 19 95 22.5 128/71(107) NSR 0 (11) 9(A) , No pain 15:45:43 78 19 95 18.8 133/64(108) NSR 0 (11) 10(A) , No pain 15:50:38 81 20 95 13.5 141/73(111) NSR 0 (11) 10(A) , No pain Medications Time Medication Route Dose Verified Delivered Reason Notes Effectiveness by by 15:15:37 Oxygen etCO2 2 Humble Buffie used for Nasal l/min Bubba Jane RN procedure cannula 15:15:43 Lidocaine 2% added 20ml Humble Humble for local to vial Bubba Mac MD anesthetic field 15:15:49 Heparin Flush added 2 Humble Humble used for Bag to bags Bubba Mac MD procedure (1000units/500ml field NS) 15:15:57 0.9% NaCl I.V. 100 Humble Buffie Per ml/hr Bubba Jane RN physician 15:16:51 Zofran I.V. 4 mg Humble Buffie Per pt has Bubba Jane RN physician allergy to shellfish derivitive, states n/v. 15:24:11 Versed I.V. 2 mg Humble Buffie for Bubba Jane RN sedation 15:24:17 Fentanyl I.V. 100 Humble Buffie for mcg Bubba Jane RN sedation 15:29:45 Versed I.V. 1 mg Humble Buffie for Bubba Jane RN sedation 15:29:49 Fentanyl I.V. 50 Humble Buffie for mcg Bubba Jane RN sedation 15:39:51 Versed I.V. 1 mg Humble Buffie for Bubba Jane RN sedation 15:39:55 Fentanyl I.V. 50 Humble Buffie for mcg Bubba Jane RN sedation Procedure Log Time Note 14:38:59 Time tracking: Regular hours (M-F 7:00 - 5:00) 14:39:03 Plan of Care:Hemodynamics will remain stable., Cardiac rhythm will remain stable., Comfort level will be maintained., Respiratory function will remain adequate., Patient/ family verbilizes understanding of procedure., Procedure tolerated without complication., Recovers from procedure without complications.. 14:49:00 Tian Jane RN sent for patient. Start room use. 15:04:47 Patient received from PCU to CCL 1 Alert and oriented. Tansferred to table in Supine position. 15:04:48 Warm blankets applied, and marcus hugger turned on for patient comfort. 15:04:49 Correct patient and procedure confirmed by team. 15:04:50 Signed procedure consent form obtained from patient. 15:04:50 ECG and BP/O2 sat monitors applied to patient. 15:09:26 Vital chart was started 15:09:36 Rhythm: atrial fibrillation 15:09:37 Full Disclosure recording started 15:09:43 H&P Date Dictated: 04/25/2018 Within 30 days and on chart.. 15:09:45 Pre-procedure instructions explained to patient. 15:09:45 Pre-op teaching completed and patient verbalized understanding. 15:09:47 Family in patients room. 15:09:49 Patient NPO since Midnight. 15:09:56 Patient allergic to Shellfish 15:09:59 Is the patient allergic to Iodine/contrast media? Yes. 15:10:06 Was the patient premedicated? Yes 15:10:07 Is patient on blood thinner?Yes 15:10:10 ACC The patient was administered the following blood thiners within the last 24 hours: ACCPlavix 15:10:12 Patient diabetic? Yes. 15:10:13 If diabetic: On Metformin? Yes 15:10:15 If on Metformin: Last Dose? 04/25/2018 15:10:19 Previous problem with sedation/anesthesia? No ? 15:10:19 Snore? Yes 15:10:20 Sleep apnea? Yes 15:10:21 Deviated septum? No 15:10:22 Opens mouth fully? Yes 15:10:23 Sticks out tongue? Yes 15:10:28 Airway obstruction? No ? 15:10:30 Dentures? No ? 15:10:32 Pre procedure: right dorsailis pedis pulse 2+ Normal; easily identifiable; not easily obliterated 15:10:34 Patient pain scale 0/10 ?. 15:10:42 IV patent on arrival in right hand with 0.9% NaCl at O. 15:10:46 Lab results completed and on chart. 15:10:52 Right groin area was prepped with chlora-prep and draped in sterile fashion 15:10:53 Alarms reviewed by R. N. 15:10:54 Sharps counted by scrub and verified by R.N. 15:11:04 Baseline sample Acquired. 15:11:44 Use device set Femoral Dx 15:11:45 ACIST Syringe (59829) opened to sterile field. 15:11:45 Bag Decanter (2002S) opened to sterile field. 15:11:46 Medline Cath Pack ([id number]) opened to sterile field. 15:11:46 DIAGNOSTIC WIRE .035 260cm J wire (074572) opened to sterile field. 15:11:47 ACIST Hand Control (74564) opened to sterile field. 15:11:48 ACIST Manifold (35161) opened to sterile field. 15:11:49 DIAGNOSTIC Multipack 5Fr catheter set ([id number]) opened to sterile field. 15:11:49 Tegaderm 4 x 4 (1626W) opened to sterile field. 15:11:50 SHEATH Prelude 5Fr 0.035 (OVD-2R-89-035) opened to sterile field. 15:15:37 Oxygen 2 l/min etCO2 Nasal cannula was administered by Tian Jane RN; used for procedure; 15:15:43 Lidocaine 2% 20ml vial added to field was administered by Humble Mac MD; for local anesthetic; 15:15:49 Heparin Flush Bag (1000units/500ml NS) 2 bags added to field was administered by Humble Mac MD; used for procedure; 15:15:57 0.9% NaCl 100 ml/hr I.V. was administered by Tian Jane RN; Per physician; 15:16:51 Zofran 4 mg I.V. was administered by Tian Jane RN; Per physician; pt has allergy to shellfish derivitive, states n/v. 15:23:43 Final Timeout: patient, procedure, and site verified with staff and physician. All members of the team are in agreement. 15:23:45 Right groin site verified by team. 15:23:47 Physical assessment completed. ASA score P 2 - A patient with mild systemic disease as per Humble Mac MD. 15:23:50 Sedation plan: IV Moderate Sedation Medication:Versed, Fentanyl 15:24:11 Versed 2 mg I.V. was administered by Tian Jane RN; for sedation; 15:24:17 Fentanyl 100 mcg I.V. was administered by Tian Jane RN; for sedation; 15:27:41 IV Extension Set opened to sterile field. 15:28:03 Zero performed for pressure channel P1 15:29:45 Versed 1 mg I.V. was administered by Tian Jane RN; for sedation; 15:29:49 Fentanyl 50 mcg I.V. was administered by Tian Jane RN; for sedation; 15:33:37 Procedure started. 15:34:48 Local anesthetic to right femoral artery with Lidocaine 2% by Humble Mac MD.INITIAL ACCESS ONLY 15:36:38 NEEDLE Merit 18G 9cm Percutaneous Entry ([id number]) opened to sterile field. 15:39:09 A 5 Fr sheath was inserted into the Right Femoral artery 15:39:51 Versed 1 mg I.V. was administered by Tian Jane RN; for sedation; 15:39:55 Fentanyl 50 mcg I.V. was administered by Tian Jane RN; for sedation; 15:40:08 A MULTIPACK JL 4.0 5Fr catheter was advanced over the wire and used for Left Coronary Angiography. 15:41:14 Catheter removed. 15:42:23 A DIAGNOSTIC AR MOD 5Fr Catheter ([id number]) was advanced over the wire and used for Right Coronary Angiography. 15:43:42 A DIAGNOSTIC AR MOD 5Fr Catheter ([id number]) was advanced over the wire and used for SVG Angiography. TO RCA 15:44:46 Catheter removed. 15:47:53 A DIAGNOSTIC IM 5Fr catheter ([id number]) was advanced over the wire and used for Internal mammary arteriography. TO LAD / CIRC 15:48:02 Catheter removed. 15:48:10 A MULTIPACK Pigtail 5 Fr catheter was advanced over the wire and used for LV Angiography. 15:48:52 LV gram done using CROWLEY 15:48:54 LV hemodynamics recorded. 15:48:56 Injector settings: Ml/sec: 10, Volume: 20, 15:49:02 EF : 60 % 15:49:17 Catheter removed. 15:49:48 Sheath removed intact; hemostasis achieved with Exoseal to the Right Femoral artery. 15:49:49 Procedure ended.(Physican Out) 15:49:59 Fluoroscopy time 03.10 minutes. 15:50:06 Flurop Dose total: 785 15:50:06 Fluoroscopy dose: 785 mGy 15:50:10 Contrast amount:Isovue 300 86ml. 15:50:12 Sharps counted by scrub and verified by R.N. 15:50:13 Insertion/operative site no bleeding no hematoma. 15:50:15 Post-op/insertion site Right Femoral artery dressed using a 4 x 4 and Tegaderm. 15:50:18 Post right femoral artery:stable, clean and dry 15:50:20 Post Procedure Pulses reassessed and unchanged 15:50:22 Post-procedure physical assessment completed. ASA score P 2 - A patient with mild systemic disease as per Humble Mac MD. 15:50:24 Post procedure rhythm: unchanged. 15:50:28 Estimated blood loss: 5 ml 15:50:29 Post procedure instruction explained to patient.Patient verbalizes understanding. 15:50:30 Patient needs reinforcement of post procedure teaching. 15:50:35 Procedure Complication : No complications 15:50:37 See physician's report for complete and final results. 15:51:13 Procedure type changed to Cath procedure, Diagnostic procedure, LHC, LHC w/Coronaries w/Grafts, Sedation Charges, Moderate Sedation up to 15 minutes 15:51:18 EXOSEAL 5Fr (EX500) opened to sterile field. 15:51:37 Procedure and supply charges have been captured, reviewed, submitted and are correct. 15:52:38 Vital chart was stopped 15:52:40 Report given to PCU. 15:52:44 Patient transfered to PCU with Bed. 15:52:54 Procedure ended. 15:52:54 Full Disclosure recording stopped 15:52:58 End room use (Document Last) Device Usage Item Name Manufacture Quantity Catalog Number Hospital Part Current M inimal Lot# / Charge Number Stock Stock Serial# Code ACIST Syringe Acist 1 15581 359024 879642 403625 2 0 (51596) [employer] Bag Decanter Microtek 1 161290 68003 176680 5 () Medical Inc. Medline Cath Cardinal 1 [id number] 084749 99700 076476 5 [facility] ([id number]) DIAGNOSTIC WIRE [address] [place] 1 820273 178049 178991 777448 3 0 .035 260cm J wire (518495) ACIST Hand Acist 1 10635 363018 456367 372953 5 Control (38712) Medical Systems Inc ACIST Manifold Acist 1 88036 162125 386025 072916 5 (47457) [employer] Inc DIAGNOSTIC Cardinal 1 [id number] 238894 36595 119442 3 0 Multipack 5Fr Health catheter set ([id number]) Tegaderm 4 x 4 3M 1 1626W 588090 154220 276187 5 (1626W) SHEATH Prelude Merit 1 IOP-6F-62-035 449093 093037 788809 5 5Fr 0.035 Medical (AXA-5M-62-035) IV Extension Hospira 1 95732-01 817428 75719 231344 5 Set NEEDLE Merit Merit 1 [id number] 271413 168373 362943 5 18G 9cm Medical Percutaneous Entry ([id number]) MULTIPACK JL Cardinal 1 170173 5 4.0 5Fr Health catheter DIAGNOSTIC AR Cardinal 1 [id number] 324322 881376 562687 1 5 MOD 5Fr Health Catheter ([id number]) DIAGNOSTIC IM Cardinal 1 [id number] 796126 131641 855864 5 5Fr catheter Health (270081G) MULTIPACK Cardinal 1 625771 5 Pigtail 5 Fr Health catheter EXOSEAL 5Fr Cardinal 1 EX500 136797 755175 549628 1 0 (EX500) Health Signature Audit [place] Stage Time Signature Unsigned Intra-Procedure 04/26/2018 Yuliya 3:53:35 PM Counts RT(R) Signatures Monitor : Yuliya Signature : Counts RT Date : Time : [facility] [address] [place] [address], [place] [address]
[~2018-04-25 10:22] MED LIST changes: +ELIQUIS5 MG PO; -GLUCOSAMINE & C1 CAP; +GLUCOSAMINE-CHONDROI PO
[2018-04-25 11:13] LABS: BASOPHILS 0.3 % (0-2); EOSINOPHILS 2.6 % (0-7); HEMATOCRIT 35.9 % (42.0-54.0); HEMOGLOBIN 12.7 g/dL (13.5-17.5); IMMATURE GRANULOCYTES 0.5 % (0-5); LYMPHOCYTES 26.7 % (15-50); MCH 31.3 pg (26.0-34.0); MCHC 35.4 g/dL (31.0-37.0); MCV 88.4 fL (80.0-100.0); MEAN PLATELET VOLUME 9.7 fL (7.4-10.4); MONOCYTES 9.2 % (2-11); NEUTROPHILS 60.7 % (40-80); PLATELET COUNT 126 10x3/uL (130-400); RBC 4.06 10x6/uL (4.20-6.10); RDW 12.4 % (11.5-14.5); WBC 6.6 10x3/uL (4.8-10.8)
[2018-04-25 11:31] LABS: ALBUMIN 3.5 g/dL (3.4-5.0); ALKALINE PHOSPHATASE 47 U/L (46-116); ALT (SGPT) 34 U/L (10-68); BILIRUBIN - TOTAL 0.46 mg/dL (0.2-1.3); CALC OSMOLALITY 284 mosm/kg (275-300); CALCIUM 8.2 mg/dL (8.5-10.1); CARBON DIOXIDE 25.1 mmol/L (21.0-32.0); CHLORIDE - SERUM 104 mmol/L (98-107); CREATININE - SERUM 0.8 mg/dL (0.6-1.3); GLUCOSE 177 mg/dL (74-106); POTASSIUM - SERUM 3.7 mmol/L (3.5-5.1); PROTEIN - SERUM 7.1 g/dL (6.4-8.2); SODIUM 141 mmol/L (136-145); UREA NITROGEN 13 mg/dL (7-18); eGFR NON AFRICAN AMERICAN > 90 mL/min (90-120)
[2018-04-25 11:41] LABS: CKMB 1.8 U/L (0.0-3.6); CREATINE KINASE 114 UL (21-232); TROPONIN-I < 0.017 ng/mL (0.000-0.060)
[2018-04-25 12:25] LABS: LIPASE 156 U/L (73-393); PRO BNP 638 pg/mL (0-125)
[2018-04-25 12:31] VITALS: BP 142/59
[2018-04-25 13:01] VITALS: BP 167/72
[2018-04-25 13:25] VITALS: BP 172/83
[2018-04-25] MEDS ORDERED: BETAPACE 120 M120 MG PO (14:43)
[2018-04-25] MEDS ORDERED: ELIQUIS5 MG PO (14:43)
[2018-04-25] MEDS ORDERED: ASCORBIC ACID500 MG PO (14:45)
[2018-04-25] MEDS ORDERED: OMEGA 3 FISH OI1 CAP PO (14:46)
[2018-04-25 14:55] VITALS: BP 160/63; BMI 46.2
[2018-04-25 15:06] VITALS: BP 161/71
[2018-04-25 22:07] VITALS: BP 144/61
[2018-04-26 06:21] VITALS: BP 143/77
[2018-04-26 07:48] VITALS: BP 148/77
[2018-04-26 10:36] LABS: APTT 25.7 SECONDS (22.8-39.4); INR 1.13 (0.85-1.17)
[2018-04-26 10:41] LABS: % SATURATION 27 % (15-55); IRON 70 ug/dl (35-150); TOTAL IRON BIND CAPACITY 258 ug/dl (260-445); UNSAT IRON BIND CAPACITY 188 ug/dl (150-375)
[2018-04-26 10:42] VITALS: BP 162/79
[2018-04-26 13:23] LABS: APPEARANCE CLEAR (CLEAR); BILIRUBIN NEGATIVE (NEGATIVE); COLOR YELLOW (YELLOW); GLUCOSE 1000 mg/dL (NEGATIVE); KETONE MODERATE mg/dL (NEGATIVE); NITRITE NEGATIVE (NEGATIVE); PROTEIN NEGATIVE (NEGATIVE); SPECIFIC GRAVITY 1.015 (1.005-1.020); UROBILINOGEN NORMAL (NORMAL)
[2018-04-26 13:53] VITALS: Ht 185.4 cm; Wt 152.6 kg
[2018-04-26 21:20] VITALS: BP 100/52
[2018-04-27 00:56] VITALS: BP 138/46
[2018-04-27 05:53] VITALS: BP 135/66
[2018-04-27 06:48] LABS: BASOPHILS 0 % (0-2); EOSINOPHILS 0 % (0-7); HEMATOCRIT 33.8 % (42.0-54.0); HEMOGLOBIN 11.4 g/dL (13.5-17.5); IMMATURE GRANULOCYTES 0.2 % (0-5); LYMPHOCYTES 12.4 % (15-50); MCH 30.6 pg (26.0-34.0); MCHC 33.7 g/dL (31.0-37.0); MCV 90.6 fL (80.0-100.0); MEAN PLATELET VOLUME 9.6 fL (7.4-10.4); MONOCYTES 8.4 % (2-11); PLATELET COUNT 120 10x3/uL (130-400); RBC 3.73 10x6/uL (4.20-6.10); RDW 12.5 % (11.5-14.5); WBC 10.6 10x3/uL (4.8-10.8)
[2018-04-27 06:56] LABS: CALC OSMOLALITY 294 mosm/kg (275-300); CARBON DIOXIDE 26.1 mmol/L (21.0-32.0); CHLORIDE - SERUM 106 mmol/L (98-107); CREATININE - SERUM 0.9 mg/dL (0.6-1.3); GLUCOSE 218 mg/dL (74-106); POTASSIUM - SERUM 4.1 mmol/L (3.5-5.1); SODIUM 143 mmol/L (136-145); eGFR NON AFRICAN AMERICAN 89 mL/min (90-120)
[2018-04-27 07:11] LABS: UREA NITROGEN 21 mg/dL (7-18)
[2018-04-27 07:56] VITALS: BP 134/68
[2018-04-27 08:20] LABS: FOLATE (FOLIC ACID) - SERUM >20.0 ng/mL (>3.0)
[2018-04-27 12:27] VITALS: BP 157/64
[2018-04-27 16:09] VITALS: BP 146/75
[2018-04-27 20:56] VITALS: BP 145/65
[2018-04-28 05:08] LABS: BASOPHILS 0.2 % (0-2); EOSINOPHILS 2.4 % (0-7); HEMATOCRIT 33.7 % (42.0-54.0); HEMOGLOBIN 11.4 g/dL (13.5-17.5); IMMATURE GRANULOCYTES 0.3 % (0-5); LYMPHOCYTES 27.8 % (15-50); MCH 30.9 pg (26.0-34.0); MCHC 33.8 g/dL (31.0-37.0); MCV 91.3 fL (80.0-100.0); MEAN PLATELET VOLUME 9.5 fL (7.4-10.4); MONOCYTES 9.7 % (2-11); NEUTROPHILS 59.6 % (40-80); PLATELET COUNT 105 10x3/uL (130-400); RBC 3.69 10x6/uL (4.20-6.10); RDW 12.7 % (11.5-14.5); WBC 8.8 10x3/uL (4.8-10.8)
[2018-04-28 05:24] LABS: CALC OSMOLALITY 288 mosm/kg (275-300); CALCIUM 7.6 mg/dL (8.5-10.1); CHLORIDE - SERUM 105 mmol/L (98-107); CREATININE - SERUM 0.9 mg/dL (0.6-1.3); POTASSIUM - SERUM 3.8 mmol/L (3.5-5.1); SODIUM 142 mmol/L (136-145); UREA NITROGEN 20 mg/dL (7-18); eGFR NON AFRICAN AMERICAN 89 mL/min (90-120)
[2018-04-28 05:42] LABS: GLUCOSE 154 mg/dL (74-106)
[2018-04-28 06:09] VITALS: BP 141/58
[2018-04-28 07:34] VITALS: BP 143/73
== END 2018-04-28 18:19 | disposition home or self-care (01) ==
LOC: OBSVTIME → D.ER 10:22 → D.M2 12:58 → D.ER 12:58 → D.M2 12:58 → OBSVTIME 12:59 → D.ER 13:57 → D.SDCHOLD 16:13 → D.M2 16:13 → UNDOADMOB 16:19 → D.SDCHOLD 16:19 → OBSVTIME 16:19 → D.M2 16:22 → EDSTATUS 04-26 12:00 → D.M2 04-28 18:19
PROVIDERS: Family Medicine; Internal Medicine Nephrology
DX: I25.119 Atherosclerotic heart disease of native coronary artery with unspecified angina pectoris (principal); Z95.1 Presence of aortocoronary bypass graft; E11.40 Type 2 diabetes mellitus with diabetic neuropathy, unspecified; I11.0 Hypertensive heart disease with heart failure; I50.9 Heart failure, unspecified; I48.0 Paroxysmal atrial fibrillation; E78.5 Hyperlipidemia, unspecified; D64.9 Anemia, unspecified; D69.6 Thrombocytopenia, unspecified; G47.33 Obstructive sleep apnea (adult) (pediatric)

== ENCOUNTER 2018-05-30 19:22 | Inpatient (IN) | payer MEDICARE, OTHER ==
[~2018-05-30] VITALS: Ht 188 cm; Wt 154.8 kg
--- NOTE | ~2018-05-30 | CN ---
PATIENT NAME:KRISTIE MADISON MEDICAL RECORD: [id number] : 48 LOCATION:D. D.2125 ADMIT DATE: 05/30/18 ACCOUNT: [id number] CONSULTING PHYSICIAN: CELESTE JOHNSON MD REFERRING PHYSICIAN: SULMA SINCLAIR MD DATE OF CONSULTATION: 05/30/2018 CONSULT REQUESTING PHYSICIAN: Sunil Duffy MD REASON FOR CONSULTATION: Febrile illness and shortness of breath. HISTORY OF PRESENT ILLNESS: Mr. Madison is a 68-year-old gentleman who underwent ablation in [place] 2 weeks ago. For the last few days, he has worsening shortness of breath and fever. The patient could not do the CTA of the chest last night, but the V/Q scan was low probability. He is also having coughing without much sputum production. He is also complaining of fever and chills. Denies any chest pain. REVIEW OF THE SYSTEMS: As in history of present illness. PAST MEDICAL HISTORY: 1. Obstructive sleep apnea. 2. Morbid obesity. 3. Coronary artery disease. 4. Atrial fibrillation. PAST SURGICAL HISTORY: 1. He has history of CABG in 2011. 2. He is status post ablation 2 weeks ago. 3. He has spinal cord stimulator placement. ALLERGIES: HE IS ALLERGIC TO SHELLFISH. MEDICATIONS: He is on Rocephin IV. His all other medication is reviewed. PERSONAL AND SOCIAL HISTORY: The patient never smoked. He is nondrinker. FAMILY HISTORY: Significant for cardiovascular disease. PHYSICAL EXAMINATION: GENERAL: Now, the patient is lying comfortably in bed. He is not in acute distress. VITAL SIGNS: The blood pressure is 132/57, pulse is 73, respiration is 22, temperature is 98.2, and SpO2 is 95% on 3 liters nasal cannula. HEENT: Conjunctivae are pink. Sclerae are not icteric. NECK: Neck is supple. No JVD. CHEST: There is no wheeze and no rales. HEART: Rhythm regular. Normal sound. No murmur. ABDOMEN: Abdomen is soft. Bowel sounds present. No hepatosplenomegaly. RECTAL: Deferred. EXTREMITIES: No cyanosis. No clubbing. No pedal edema. SKIN: The skin is warm. Normal turgor. No rash. DIAGNOSTIC DATA: Chest radiograph; there are no acute infiltrates. V/Q scan is of low probability. There is some hyperinflation. The ultrasound showed left CONSULT REPORT [id number] KRISTIE MADISON pseudoaneurysm, 2.5 x 1.7 x 2.8 cm. OTHER LABORATORY DATA: CBC; WBC 17.1, hemoglobin is 9.8, hematocrit 29.8, and platelet count is 155. Chemistry; sodium 141, potassium is 3.3, BUN is 10, and creatinine is 0.9. IMPRESSION: 1. Acute hypoxic respiratory failure. The differential diagnoses include but not limited to possible pulmonary thromboembolism with elevated D-dimer and possible early pneumonia. 2. Febrile illness. 3. Leukocytosis. 4. Suspect pneumonia as above. 5. Hypokalemia. 6. Positive D-dimer. The V/Q scan is low probability. Rule out DVT. 7. Left pseudoaneurysm postprocedure. 8. Obstructive sleep apnea. 9. Atrial fibrillation, status post ablation. RECOMMENDATION: 1. I will discontinue Rocephin and start him on vancomycin and meropenem to cover for Gram-negative seymour as well as Gram-positive cocci, possible MRSA. 2. Followup labs and chest radiograph. 3. The patient does not want any CTA of the chest. Continue the BiPAP at night. Dr. Duffy, thank you for involving me in the care of Mr. Madison. TRANSINT:[id number] Voice Confirmation ID: [id number] DOCUMENT ID: [id number] CELESTE JOHNSON MD CC: [id number] DICTATION DATE: 05/31/18 163 SYSTEM DEVELOPER ASSOCIATE MANAGER: 05/31/18 1714 ADM IN [place] [id number] [place] [address]
--- NOTE | ~2018-05-30 | MORECARE ---
CASE MANAGEMENT DISCHARGE SUMMARY PATIENT: KRISTIE CARRERA UNIT: [id number] ADM DATE: 05/30/18 AGE: 68 : 49 SEX: M ROOM/BED: D.2125 AUTHOR: VISHAL CHURCHILL PHYSICIAN: REFERRING PHYSICIAN: SULMA SINCLAIR MD DATE OF SERVICE: 06/02/18 Discharge Plan Patient Name: KRISTIE CARRERA [facility] [facility] 1950 Planned Disposition: Home Anticipated Discharge Date: Discharge Date: Expected LOS: Initial Reviewer: [email or web address] Initial Review Date: 05/30/2018 Generated: 06/02/18 5:03 pm Patient Name: KRISTIE CARRERA Page [id number] at 1604 All edits/amendments must be made on the electronic document DICTATION DATE: 06/02/181602 MAGICIAN/ILLUSIONIST: ELIOT 06/02/181602 RPT#: [id number] DC DATE: STATUS: ADM IN [facility] [address] [place] [address] END OF REPORT
--- NOTE | ~2018-05-30 | MORECARE ---
CASE MANAGEMENT DISCHARGE SUMMARY PATIENT: KRISTIE CARRERA UNIT: [id number] ADM DATE: 05/30/18 AGE: 68 : 49 SEX: M ROOM/BED: D.0907 AUTHOR: KERLINE,DOC PHYSICIAN: REFERRING PHYSICIAN: SULMA SINCLAIR MD DATE OF SERVICE: 06/02/18 Discharge Plan Patient Name: KRISTIE CARRERA Facility: [facility]:[place] : 1950 Planned Disposition: Home Anticipated Discharge Date: Discharge Date: Expected LOS: Initial Reviewer: [email or web address] Initial Review Date: 05/30/2018 Generated: 06/02/18 5:16 pm Comments DCP- Discharge Planning Updated by [email or web address]: Teddy Chau on 06/02/18 3:[address] Patient Name: KRISTIE CARRERA Admission Status: ER Accout number: [id number] Admission Date: 05-30-2018 : 1950 Admission Diagnosis:FEVER, UNSPECIFIED Attending: SULMA SINCLAIR Current LOS: 3 Anticipated DC Date: Planned Disposition: Home Primary Insurance: MEDICARE A & B Discharge Planning Comments: CM MET WITH PT IN ROOM TO DISCUSS DISCHARGE PLANNING AND NEEDS. PT REPORTS LIVING AT HOME INDEPENDENTLY WITH SPOUSE. PT HAS CANE, CPAP AND WALKER, PREFERRED MEDICAL EQUIPMENT PROVIDER IF [facility]. PT HAS NO OUTSIDE SERVICES ASSISTING IN THE HOME. CM DISCUSSED AVAILABILITY OF HOME HEALTH, REHAB SERVICES AND MEDICAL EQUIPMENT. PT DENIES DISCHARGE NEEDS AT THIS TIME, REPORTS HIS WILL PICK HIM UP FOR DISCHARGE HOME. PT PLANS TO DISCHARGE HOME WITH SPOUSE, NO DISCHARGE NEEDS KNOWN AT THIS TIME. CM TO FOLLOW AND ASSIST IF NEEDED. Status Controller: Teddy Chau DCPIA - Discharge Planning Initial Assessment Updated by [email or web address]: Teddy Chau on 06/02/18 4:04 pm * Is the patient Alert and Oriented? Yes * How many steps to enter\exit or inside your home? NONE * PCP DR. VAZQUEZ * Pharmacy [facility] * Preadmission Environment Home with Family * ADLs Independent * Equipment Cane CPAP Walker * Other Equipment [facility] - MEDICAL EQUIPMENT PROVIDER * List name and contact numbers for known caregivers / representatives who currently or will assist patient after discharge: AIME CARRERA, SPOUSE, * Verbal permission to speak to the caregivers and representatives has been obtained from the patient. N/A * Community resources currently utilized None * Please name any agencies selected above. NONE * Additional services required to return to the preadmission environment? No * Can the patient safely return to the preadmission environment? Yes * Has this patient been hospitalized within the prior 30 days at any hospital? Yes Last DP export: 06/02/18 3:04 Patient Name: KRISTIE CARRERA Page 12701 at 1616 All edits/amendments must be made on the electronic document DICTATION DATE: 06/02/18 161 CARTON MAKING MACHINE OPERATOR: ELIOT 06/02/18 161 RPT#: [id number] DC DATE: STATUS: ADM IN [facility] [address] [place] [address] END OF REPORT
--- NOTE | ~2018-05-30 | MORECARE ---
CASE MANAGEMENT DISCHARGE SUMMARY PATIENT: KRISTIE CARRERA UNIT: [id number] ADM DATE: 05/30/18 AGE: 68 : 49 SEX: M ROOM/BED: D.1656 AUTHOR: VISHAL CHURCHILL PHYSICIAN: REFERRING PHYSICIAN: SULMA SINCLAIR MD DATE OF SERVICE: 06/07/18 Discharge Plan Patient Name: KRISTIE CARRERA Facility: [facility]:[place] : 1950 Planned Disposition: Home Anticipated Discharge Date: 06/07/18 Discharge Date: Expected LOS: 8 Initial Reviewer: [email or web address] Initial Review Date: 05/30/2018 Generated: 06/07/18 1:23 pm Comments DCP- Discharge Planning Updated by [email or web address]: Teddy Chau on 06/07/18 11:[address] Patient Name: KRISTIE CARRERA Encounter No: [id number] : 1950 Primary Insurance: MEDICARE A & B Anticipated DC Date: 06-07-2018 Planned Disposition: Home DCP follow-up note: CM MET WITH PT IN ROOM TO DISCUSS DISCHARGE NEEDS AND PLANNING. CM DISCUSSED AVAILABILITY OF HOME HEALTH, REHAB SERVICES AND MEDICAL EQUIPMENT. PT DENIES DISCHARGE NEEDS. SPOUSE TO TRANSPORT HOME AT DISCHARGE. IMPORTANT MESSAGE FROM MEDICARE PROVIDED AND EXPLAINED. COLLECTIONS CURATOR NURSE NOTIFIED. Teddy Chau CASE MANAGEMENT DCP- Discharge Planning Updated by [email or web address]: Teddy Chau on 06/02/18 3:[address] Patient Name: KRISTIE CARRERA Admission Status: ER Accout number: [id number] Admission Date: 05-30-2018 : 1950 Admission Diagnosis:FEVER, UNSPECIFIED Attending: SULMA SINCLAIR Current LOS: 3 Anticipated DC Date: Planned Disposition: Home Primary Insurance: MEDICARE A & B Discharge Planning Comments: CM MET WITH PT IN ROOM TO DISCUSS DISCHARGE PLANNING AND NEEDS. PT REPORTS LIVING AT HOME INDEPENDENTLY WITH SPOUSE. PT HAS CANE, CPAP AND WALKER, PREFERRED MEDICAL EQUIPMENT PROVIDER IF [facility]. PT HAS NO OUTSIDE SERVICES ASSISTING IN THE HOME. CM DISCUSSED AVAILABILITY OF HOME HEALTH, REHAB SERVICES AND MEDICAL EQUIPMENT. PT DENIES DISCHARGE NEEDS AT THIS TIME, REPORTS HIS WILL PICK HIM UP FOR DISCHARGE HOME. PT PLANS TO DISCHARGE HOME WITH SPOUSE, NO DISCHARGE NEEDS KNOWN AT THIS TIME. CM TO FOLLOW AND ASSIST IF NEEDED. Public Health Policy Analyst: Teddy Chau DCPIA - Discharge Planning Initial Assessment Updated by [email or web address]: Teddy Chau on 06/02/18 4:04 pm * Is the patient Alert and Oriented? Yes * How many steps to enter\exit or inside your home? NONE * PCP DR. VAZQUEZ * Pharmacy [facility] * Preadmission Environment Home with Family * ADLs Independent * Equipment Cane CPAP Walker * Other Equipment [facility] - MEDICAL EQUIPMENT PROVIDER * List name and contact numbers for known caregivers / representatives who currently or will assist patient after discharge: AIME CARRERA, SPOUSE, * Verbal permission to speak to the caregivers and representatives has been obtained from the patient. N/A * Community resources currently utilized None * Please name any agencies selected above. NONE * Additional services required to return to the preadmission environment? No * Can the patient safely return to the preadmission environment? Yes * Has this patient been hospitalized within the prior 30 days at any hospital? Yes Coverage Notice Reviewer: [id number] - Teddy Chau Notice Issued Date-Time: 06/07/2018 12:10 Notice Type: IM Discharge Notice Notice Delivered To: Patient Relationship to Patient: Baggage And Mail Agent Name: Delivery Method: HAND - Hand Delivered Tracy Days: Prior Verbal Notification: Recipient Understood Notice: Yes Recipient Signature: Yes Med Rec Note Co-signed by Attending: Coverage Notice Comment: Last DP export: 06/02/18 3:16 Patient Name: KRISTIE CARRERA Page 10725 at 1223 All edits/amendments must be made on the electronic document DICTATION DATE: 06/07/18 1222 ORNAMENTAL IRON WORKER APPRENTICE: ELIOT 06/07/18 1222 RPT#: [id number] DC DATE: STATUS: ADM IN [facility] [address] [place] [address] END OF REPORT
--- NOTE | ~2018-05-30 | EC ---
PATIENT:KRISTIE CARRERA DATE OF SERVICE: 05/30/18 SEX: M MEDICAL RECORD: [id number] DATE OF : [birth year] LOCATION:D.M2 D.212 AGE OF PATIENT: 68 ADMISSION DATE: 05/30/18 REFERRING PHYSICIAN: INTERPRETING PHYSICIAN: ADÁN LEHMAN MD ECHOCARDIOGRAM REPORT ECHO CHARGES 4 ECHO COMPLETE Date: 05/31/18 CLINICAL DIAGNOSIS: DYSPNEA, HX OF CAD/CABG ECHOCARDIOGRAPHIC MEASUREMENTS (adult normal given) AC root (d.<3.7cm) 3.5 cm LV Septum d (<1.2 cm> 1.2 cm Valve Excursion 1.9 cm LV Septum (systole) 1.5 cm Left Atria (s.<4.0cm> 4.6 cm LVPW d(<1.2cm) 1.5 cm RV (d.<2.3cm) 4.1 cm LVPW (sytole) 2.2 cm LV diastole(<5.6CM) 7.1 cm MV E-F(>70mm/sec) cm LV systole 5.4 cm LVOT Diameter 2.0 cm MV exc.(>10mm) 2.2 cm Est.ejection fraction (50-75%) % DOPPLER: LVIT cm/sec A 48.0 cm/sec E 124 cm/sec LA cm/sec RVSP 28 mmHg LVOT 110 cm/sec AOP1/2T m/s Asc. Ao 197 cm/sec RVOT 133 cm/sec RA cm/sec PA 146 cm/sec AV Gradient Peak 15.57mmHg AV Mean 10.08mmHg AV Area 1.9 cm MV Gradient Peak 10.73mmHg MV Mean 3.40 mmHg MV Area cm COMMENTS: Mathematics Education Professor: Aristeo MARIE Blending Plant Operator: Aristeo Mac TAPE# PACS Pericardial Effusion N DATE OF SERVICE: 05/31/2018 FINDINGS: 1. Left ventricular chamber size is mildly dilated. Left ventricular systolic function is preserved at 55%. 2. Left atrium is dilated at 4.6 cm. Right atrium and right ventricle chamber sizes are as well moderately dilated. 3. Valvular structures have normal structure and motion. 4. Doppler interrogation reveals mild mitral regurgitation and mild tricuspid regurgitation. No other valvular insufficiency or stenosis. ECHOCARDIOGRAM REPORT [id number] KRISTIE CARRERA 5. No evidence of pericardial effusion or left ventricular thrombus. Pulmonary systolic pressure is normal, estimated at 28 mmHg. TRANSINT:[id number] Voice Confirmation ID: [id number] DOCUMENT ID: [id number] ADÁN LEHMAN MD at 0924 CC: [id number] DICTATION DATE: 05/31/181906 STORE ASSOCIATE: 05/31/18 194 ADM IN [facility] [address] [place] [id number]
[~2018-05-30 19:22] MED LIST changes: +ASCORBIC ACID500 MG PO; +BETAPACE 120 M120 MG PO; +OMEGA 3 FISH OI1 CAP PO
[2018-05-30 20:06] LABS: BASOPHILS 0.1 % (0-2); EOSINOPHILS 0.2 % (0-7); HEMATOCRIT 30.8 % (42.0-54.0); HEMOGLOBIN 10.3 g/dL (13.5-17.5); IMMATURE GRANULOCYTES 0.3 % (0-5); LYMPHOCYTES 6.6 % (15-50); MCH 30.5 pg (26.0-34.0); MCHC 33.4 g/dL (31.0-37.0); MCV 91.1 fL (80.0-100.0); MONOCYTES 6.9 % (2-11); NEUTROPHILS 85.9 % (40-80); RBC 3.38 10x6/uL (4.20-6.10); WBC 15.7 10x3/uL (4.8-10.8)
[2018-05-30 20:09] LABS: PLATELET COUNT 157 10x3/uL (130-400)
[2018-05-30 20:25] LABS: ALBUMIN 3.4 g/dL (3.4-5.0); ALKALINE PHOSPHATASE 58 U/L (46-116); ALT (SGPT) 34 U/L (10-68); BILIRUBIN - TOTAL 0.71 mg/dL (0.2-1.3); CALCIUM 8.7 mg/dL (8.5-10.1); CARBON DIOXIDE 25.2 mmol/L (21.0-32.0); CHLORIDE - SERUM 101 mmol/L (98-107); CREATININE - SERUM 0.9 mg/dL (0.6-1.3); POTASSIUM - SERUM 3.3 mmol/L (3.5-5.1); PROTEIN - SERUM 7.1 g/dL (6.4-8.2); SODIUM 140 mmol/L (136-145); UREA NITROGEN 9 mg/dL (7-18); eGFR NON AFRICAN AMERICAN 89 mL/min (90-120)
[2018-05-30 20:33] LABS: CREATINE KINASE 68 UL (21-232); PRO BNP 951 pg/mL (0-125)
[2018-05-30 20:38] LABS: CALC OSMOLALITY 285 mosm/kg (275-300); GLUCOSE 242 mg/dL (74-106); TROPONIN-I < 0.017 ng/mL (0.000-0.060)
[2018-05-30 20:40] VITALS: BP 182/72
[2018-05-30 20:44] LABS: APTT 30.5 SECONDS (22.8-39.4); INR 1.14 (0.85-1.17)
[2018-05-30 20:45] LABS: D-DIMER-QUANTITATIVE 1.01 ug/mLFEU (0.20-0.54)
[2018-05-30 20:51] LABS: APPEARANCE CLEAR (CLEAR); BILIRUBIN NEGATIVE (NEGATIVE); COLOR YELLOW (YELLOW); EPITHELIAL CELLS NSEEN /hpf (0-5); GLUCOSE NEGATIVE (NEGATIVE); KETONE NEGATIVE (NEGATIVE); NITRITE NEGATIVE (NEGATIVE); PROTEIN NEGATIVE (NEGATIVE); RED CELLS - URINE 0-5 /hpf (0-5); UROBILINOGEN NORMAL (NORMAL); WHITE CELLS - URINE NSEEN /hpf (0-5)
[2018-05-30 21:01] VITALS: BP 175/76
[2018-05-30 22:00] VITALS: BP 185/86
[2018-05-31 01:19] VITALS: BP 187/75
[2018-05-31 02:13] VITALS: BP 187/75; BMI 42.4
[2018-05-31 05:01] LABS: BASOPHILS 0.1 % (0-2); EOSINOPHILS 0.1 % (0-7); HEMATOCRIT 29.8 % (42.0-54.0); HEMOGLOBIN 9.8 g/dL (13.5-17.5); IMMATURE GRANULOCYTES 0.4 % (0-5); LYMPHOCYTES 8.6 % (15-50); MCH 30.2 pg (26.0-34.0); MCHC 32.9 g/dL (31.0-37.0); MCV 91.7 fL (80.0-100.0); MEAN PLATELET VOLUME 9.6 fL (7.4-10.4); MONOCYTES 7.1 % (2-11); NEUTROPHILS 83.7 % (40-80); PLATELET COUNT 155 10x3/uL (130-400); RBC 3.25 10x6/uL (4.20-6.10); WBC 17.1 10x3/uL (4.8-10.8)
[2018-05-31 05:09] LABS: CALC OSMOLALITY 283 mosm/kg (275-300); CALCIUM 8.5 mg/dL (8.5-10.1); CARBON DIOXIDE 28.6 mmol/L (21.0-32.0); CHLORIDE - SERUM 102 mmol/L (98-107); CREATININE - SERUM 0.9 mg/dL (0.6-1.3); POTASSIUM - SERUM 3.3 mmol/L (3.5-5.1); SODIUM 141 mmol/L (136-145); UREA NITROGEN 10 mg/dL (7-18); eGFR NON AFRICAN AMERICAN 89 mL/min (90-120)
[2018-05-31 05:10] LABS: GLUCOSE 164 mg/dL (74-106)
[2018-05-31 06:11] VITALS: BP 151/70
[2018-05-31 07:56] VITALS: BP 147/51
[2018-05-31 10:57] VITALS: BP 132/57
[2018-05-31 16:18] LABS: APPEARANCE CLEAR (CLEAR); BILIRUBIN NEGATIVE (NEGATIVE); COLOR YELLOW (YELLOW); GLUCOSE NEGATIVE (NEGATIVE); KETONE NEGATIVE (NEGATIVE); NITRITE NEGATIVE (NEGATIVE); PROTEIN NEGATIVE (NEGATIVE); UROBILINOGEN NORMAL (NORMAL)
[2018-05-31 21:28] VITALS: BP 142/55
[2018-06-01 01:34] VITALS: BP 137/55
[2018-06-01 06:10] VITALS: BP 136/65
[2018-06-01 06:11] LABS: BASOPHILS 0.1 % (0-2); EOSINOPHILS 0.7 % (0-7); HEMATOCRIT 28.1 % (42.0-54.0); HEMOGLOBIN 9.3 g/dL (13.5-17.5); IMMATURE GRANULOCYTES 0.4 % (0-5); LYMPHOCYTES 11.4 % (15-50); MCH 30.8 pg (26.0-34.0); MCHC 33.1 g/dL (31.0-37.0); MEAN PLATELET VOLUME 9.5 fL (7.4-10.4); MONOCYTES 6.8 % (2-11); NEUTROPHILS 80.6 % (40-80); PLATELET COUNT 133 10x3/uL (130-400); RBC 3.02 10x6/uL (4.20-6.10); WBC 16.9 10x3/uL (4.8-10.8)
[2018-06-01 06:19] LABS: ALBUMIN 2.8 g/dL (3.4-5.0); ALKALINE PHOSPHATASE 55 U/L (46-116); ALT (SGPT) 27 U/L (10-68); BILIRUBIN - TOTAL 0.85 mg/dL (0.2-1.3); CALC OSMOLALITY 284 mosm/kg (275-300); CALCIUM 8.3 mg/dL (8.5-10.1); CARBON DIOXIDE 31.5 mmol/L (21.0-32.0); CHLORIDE - SERUM 102 mmol/L (98-107); GLUCOSE 149 mg/dL (74-106); MAGNESIUM - SERUM 1.8 mg/dL (1.8-2.4); POTASSIUM - SERUM 3.1 mmol/L (3.5-5.1); PROTEIN - SERUM 6.5 g/dL (6.4-8.2); SODIUM 141 mmol/L (136-145); eGFR NON AFRICAN AMERICAN 79 mL/min (90-120)
[2018-06-01 06:24] LABS: UREA NITROGEN 14 mg/dL (7-18)
[2018-06-01 10:19] VITALS: BP 170/62
[2018-06-01 11:58] VITALS: Ht 188 cm; Wt 154.8 kg
[2018-06-01 14:47] VITALS: BP 158/64
[2018-06-01 20:00] VITALS: BP 154/52
[2018-06-02] VITALS: BP 182/78
[2018-06-02 05:28] LABS: BASOPHILS 0.2 % (0-2); EOSINOPHILS 1.6 % (0-7); HEMATOCRIT 28.7 % (42.0-54.0); HEMOGLOBIN 9.3 g/dL (13.5-17.5); IMMATURE GRANULOCYTES 0.3 % (0-5); LYMPHOCYTES 11.7 % (15-50); MCH 30.5 pg (26.0-34.0); MCHC 32.4 g/dL (31.0-37.0); MCV 94.1 fL (80.0-100.0); MONOCYTES 7.9 % (2-11); NEUTROPHILS 78.3 % (40-80); PLATELET COUNT 156 10x3/uL (130-400); RBC 3.05 10x6/uL (4.20-6.10)
[2018-06-02 05:47] LABS: WBC 10.1 10x3/uL (4.8-10.8)
[2018-06-02 05:58] LABS: BILIRUBIN - TOTAL 0.38 mg/dL (0.2-1.3); CALCIUM 8.2 mg/dL (8.5-10.1); CARBON DIOXIDE 28.5 mmol/L (21.0-32.0); CREATININE - SERUM 1.1 mg/dL (0.6-1.3); PROTEIN - SERUM 7.1 g/dL (6.4-8.2)
[2018-06-02 05:59] LABS: ANION GAP 13.5 mmol/L (8-16)
[2018-06-02 07:27] VITALS: BP 134/73
[2018-06-02 12:10] VITALS: BP 170/68
[2018-06-02 19:03] VITALS: BP 174/73
[2018-06-02 20:55] VITALS: BP 178/47
[2018-06-03 00:56] VITALS: BP 166/71
[2018-06-03 06:21] VITALS: BP 175/73
[2018-06-03 06:24] LABS: BASOPHILS 0.3 % (0-2); EOSINOPHILS 0.7 % (0-7); HEMATOCRIT 28.4 % (42.0-54.0); HEMOGLOBIN 9.2 g/dL (13.5-17.5); IMMATURE GRANULOCYTES 0.3 % (0-5); LYMPHOCYTES 12.6 % (15-50); MCH 30.2 pg (26.0-34.0); MCHC 32.4 g/dL (31.0-37.0); MCV 93.1 fL (80.0-100.0); MEAN PLATELET VOLUME 9.6 fL (7.4-10.4); NEUTROPHILS 73.1 % (40-80); PLATELET COUNT 154 10x3/uL (130-400); RBC 3.05 10x6/uL (4.20-6.10); RDW 12.9 % (11.5-14.5)
[2018-06-03 06:34] LABS: WBC 7.3 10x3/uL (4.8-10.8)
[2018-06-03 06:56] LABS: ALBUMIN 2.9 g/dL (3.4-5.0); ALKALINE PHOSPHATASE 58 U/L (46-116); ALT (SGPT) 34 U/L (10-68); BILIRUBIN - TOTAL 0.55 mg/dL (0.2-1.3); CALC OSMOLALITY 284 mosm/kg (275-300); CALCIUM 8.3 mg/dL (8.5-10.1); CARBON DIOXIDE 28.7 mmol/L (21.0-32.0); CHLORIDE - SERUM 100 mmol/L (98-107); CREATININE - SERUM 0.9 mg/dL (0.6-1.3); GLUCOSE 206 mg/dL (74-106); POTASSIUM - SERUM 4.3 mmol/L (3.5-5.1); SODIUM 139 mmol/L (136-145); eGFR NON AFRICAN AMERICAN 89 mL/min (90-120)
[2018-06-03 07:01] LABS: UREA NITROGEN 14 mg/dL (7-18)
[2018-06-03 08:03] VITALS: BP 163/64
[2018-06-03 11:52] VITALS: BP 122/62
[2018-06-03 15:58] VITALS: BP 149/67
[2018-06-03 20:00] VITALS: BP 161/77
[2018-06-04] VITALS: BP 134/69
[2018-06-04 05:00] LABS: BASOPHILS 0.5 % (0-2); HEMATOCRIT 28.8 % (42.0-54.0); HEMOGLOBIN 9.5 g/dL (13.5-17.5); IMMATURE GRANULOCYTES 0.7 % (0-5); LYMPHOCYTES 23.9 % (15-50); MCH 30.2 pg (26.0-34.0); MCV 91.4 fL (80.0-100.0); MEAN PLATELET VOLUME 9.6 fL (7.4-10.4); MONOCYTES 12.8 % (2-11); NEUTROPHILS 59.1 % (40-80); PLATELET COUNT 159 10x3/uL (130-400); RBC 3.15 10x6/uL (4.20-6.10); RDW 12.8 % (11.5-14.5); WBC 5.7 10x3/uL (4.8-10.8)
[2018-06-04 05:24] LABS: ALKALINE PHOSPHATASE 58 U/L (46-116); BILIRUBIN - TOTAL 0.49 mg/dL (0.2-1.3); CALC OSMOLALITY 285 mosm/kg (275-300); CALCIUM 8.6 mg/dL (8.5-10.1); CARBON DIOXIDE 30.1 mmol/L (21.0-32.0); CHLORIDE - SERUM 102 mmol/L (98-107); CREATININE - SERUM 0.8 mg/dL (0.6-1.3); GLUCOSE 179 mg/dL (74-106); MAGNESIUM - SERUM 2.1 mg/dL (1.8-2.4); POTASSIUM - SERUM 3.9 mmol/L (3.5-5.1); PROTEIN - SERUM 7.2 g/dL (6.4-8.2); SODIUM 141 mmol/L (136-145); UREA NITROGEN 15 mg/dL (7-18); eGFR NON AFRICAN AMERICAN > 90 mL/min (90-120)
[2018-06-04 05:25] LABS: ALT (SGPT) 50 U/L (10-68)
[2018-06-04 06:04] VITALS: BP 174/78
[2018-06-04 08:00] VITALS: BP 170/89
[2018-06-04 11:26] VITALS: BP 161/74
[2018-06-04 16:02] VITALS: BP 179/77
[2018-06-04 20:12] VITALS: BP 172/74
[2018-06-05 00:20] VITALS: BP 146/66
[2018-06-05 04:49] VITALS: BP 148/65
[2018-06-05 08:20] LABS: BASOPHILS 0.4 % (0-2); EOSINOPHILS 3.3 % (0-7); HEMATOCRIT 28.4 % (42.0-54.0); HEMOGLOBIN 9.4 g/dL (13.5-17.5); IMMATURE GRANULOCYTES 0.9 % (0-5); LYMPHOCYTES 23.7 % (15-50); MCH 30.3 pg (26.0-34.0); MCHC 33.1 g/dL (31.0-37.0); MCV 91.6 fL (80.0-100.0); MEAN PLATELET VOLUME 8.9 fL (7.4-10.4); MONOCYTES 9.7 % (2-11); PLATELET COUNT 181 10x3/uL (130-400); RDW 12.9 % (11.5-14.5); WBC 6.9 10x3/uL (4.8-10.8)
[2018-06-05 08:49] LABS: ALKALINE PHOSPHATASE 65 U/L (46-116); ALT (SGPT) 52 U/L (10-68); BILIRUBIN - TOTAL 0.53 mg/dL (0.2-1.3); CALC OSMOLALITY 288 mosm/kg (275-300); CALCIUM 8.5 mg/dL (8.5-10.1); CARBON DIOXIDE 32.4 mmol/L (21.0-32.0); CHLORIDE - SERUM 100 mmol/L (98-107); CREATININE - SERUM 0.9 mg/dL (0.6-1.3); GLUCOSE 217 mg/dL (74-106); MAGNESIUM - SERUM 1.9 mg/dL (1.8-2.4); POTASSIUM - SERUM 3.7 mmol/L (3.5-5.1); PROTEIN - SERUM 7.3 g/dL (6.4-8.2); SODIUM 141 mmol/L (136-145); UREA NITROGEN 14 mg/dL (7-18); eGFR NON AFRICAN AMERICAN 89 mL/min (90-120)
[2018-06-05 08:52] VITALS: BP 158/75
[2018-06-05 11:02] VITALS: BP 160/63
[2018-06-05 15:44] VITALS: BP 141/71
[2018-06-05 21:59] VITALS: BP 157/88
[2018-06-06 02:24] VITALS: BP 149/56
[2018-06-06 05:33] LABS: BASOPHILS 0.5 % (0-2); EOSINOPHILS 3.4 % (0-7); HEMATOCRIT 29.4 % (42.0-54.0); HEMOGLOBIN 9.6 g/dL (13.5-17.5); IMMATURE GRANULOCYTES 1.9 % (0-5); LYMPHOCYTES 29.9 % (15-50); MCH 29.8 pg (26.0-34.0); MCHC 32.7 g/dL (31.0-37.0); MCV 91.3 fL (80.0-100.0); MEAN PLATELET VOLUME 9.2 fL (7.4-10.4); MONOCYTES 11.2 % (2-11); NEUTROPHILS 53.1 % (40-80); PLATELET COUNT 215 10x3/uL (130-400); RBC 3.22 10x6/uL (4.20-6.10); RDW 12.9 % (11.5-14.5); WBC 7.4 10x3/uL (4.8-10.8)
[2018-06-06 05:45] VITALS: BP 147/68
[2018-06-06 05:46] LABS: CALC OSMOLALITY 287 mosm/kg (275-300); CALCIUM 8.9 mg/dL (8.5-10.1); CARBON DIOXIDE 31.5 mmol/L (21.0-32.0); CHLORIDE - SERUM 103 mmol/L (98-107); CREATININE - SERUM 0.8 mg/dL (0.6-1.3); GLUCOSE 174 mg/dL (74-106); SODIUM 142 mmol/L (136-145); UREA NITROGEN 16 mg/dL (7-18); eGFR NON AFRICAN AMERICAN > 90 mL/min (90-120)
[2018-06-06 08:40] VITALS: BP 178/72
[2018-06-06 11:42] VITALS: BP 166/71
[2018-06-06 15:28] VITALS: BP 146/66
[2018-06-06 20:00] VITALS: BP 149/76
[2018-06-07 00:51] VITALS: BP 163/76
[2018-06-07 04:57] VITALS: BP 172/72
[2018-06-07 06:00] LABS: BASOPHILS 0.4 % (0-2); EOSINOPHILS 3.5 % (0-7); HEMATOCRIT 28.4 % (42.0-54.0); HEMOGLOBIN 9.3 g/dL (13.5-17.5); IMMATURE GRANULOCYTES 1.8 % (0-5); LYMPHOCYTES 32.3 % (15-50); MCH 30.4 pg (26.0-34.0); MCHC 32.7 g/dL (31.0-37.0); MCV 92.8 fL (80.0-100.0); MEAN PLATELET VOLUME 9.5 fL (7.4-10.4); MONOCYTES 9.1 % (2-11); NEUTROPHILS 52.9 % (40-80); PLATELET COUNT 236 10x3/uL (130-400); RBC 3.06 10x6/uL (4.20-6.10); RDW 13.3 % (11.5-14.5); WBC 7.4 10x3/uL (4.8-10.8)
[2018-06-07 06:14] LABS: CALC OSMOLALITY 292 mosm/kg (275-300); CALCIUM 8.4 mg/dL (8.5-10.1); CARBON DIOXIDE 32.3 mmol/L (21.0-32.0); CHLORIDE - SERUM 105 mmol/L (98-107); CREATININE - SERUM 0.8 mg/dL (0.6-1.3); GLUCOSE 207 mg/dL (74-106); POTASSIUM - SERUM 3.9 mmol/L (3.5-5.1); SODIUM 143 mmol/L (136-145); UREA NITROGEN 17 mg/dL (7-18); eGFR NON AFRICAN AMERICAN > 90 mL/min (90-120)
[2018-06-07 07:44] VITALS: BP 165/82
[2018-06-07 11:24] VITALS: BP 155/64
== END 2018-06-07 13:54 | disposition home or self-care (01) | DRG 872 ==
LOC: D.ER 19:22 → D.M2 22:28 → D.SDCHOLD 06-06 13:37 → D.M2 06-06 13:39
PROVIDERS: Emergency Medicine; Internal Medicine Cardiovascular Disease; Internal Medicine Pulmonary Disease
DX: A41.9 Sepsis, unspecified organism (principal); I72.4 Aneurysm of artery of lower extremity; I25.10 Atherosclerotic heart disease of native coronary artery without angina pectoris; E78.5 Hyperlipidemia, unspecified; I10 Essential (primary) hypertension; D50.9 Iron deficiency anemia, unspecified; I48.91 Unspecified atrial fibrillation; E11.40 Type 2 diabetes mellitus with diabetic neuropathy, unspecified